=== PATIENT | male | born 1965 | race Two or more races ===

== ENCOUNTER 2025-08-09 13:59 | Inpatient (IN) ==
--- NOTE | 2025-08-09 14:22 | Emergency Department Note ---
Impression & Plan CVA (cerebral vascular accident), Acute hyperkalemia, Hyperglycemia ED Provider Note NAME: KEV [id number] CARMINA AGE: 60 SEX: M : 1965 ARRIVES VIA: Walk-In INFORMANT: Patient ED PROVIDER(S): Donnie Brown DO CHIEF COMPLAINT: Concern for DKA HPI: Patient is a 60-year-old male with a history of diabetes who was initially sent in earlier today for chest pain. He was seen/evaluated and discharged following feeling better and a complete workup with a GI cocktail. He was discharged back and per the [place] [facility] they note he was vomiting once he got back and became very lethargic and consequently they sent him back in concern for DKA. They are also concerned that he may have ingested something as he has become more tired and were requesting a urine drug screen. He does admit to feeling dizzy which he notes has been there for the past 2 days. He denies any focal weakness or numbness in the arms or legs. ADDITIONAL HISTORY OBTAINED: Per HPI Chronic Medical/Social Conditions Affecting Care: Per HPI PAST MEDICAL HISTORY:See Below PAST SURGICAL HISTORY:See Below FAMILY HISTORY:See Below SOCIAL HISTORY:See Below HOME MEDICATIONS:See Below ALLERGIES:See Below VITALS:See Below PHYSICAL EXAMINATION: GENERAL: Sitting up in bed, alert, well appearing, well nourished, no distress, non-toxic EYE EXAM: normal conjunctiva. PERRL and EOM's intact. OROPHARYNX: no exudate, no erythema, lips, buccal mucosa, and tongue normal and mucous membranes are moist NECK: supple, no nuchal rigidity, no adenopathy, non-tender LUNGS: Clear to auscultation. Normal chest wall mechanics HEART: no murmurs, S1 normal and S2 normal ABDOMEN: abdomen soft, non-tender, normo-active bowel sounds, no masses, no rebound or guarding. BACK: Back is symmetrical on inspection and there is no deformity, no midline tenderness, no CVA tenderness. SKIN: no rashes and no bruising UPPER EXTREMITIES: upper extremities are grossly normal. LOWER EXTREMITIES: No pitting edema. NEURO EXAM: Normal sensorium, cranial nerves II-XII intact, normal speech, no weakness of arms, no weakness of legs. No drift. Finger to nose intact. Gross sensation intact. MEDICAL DECISION MAKING: Patient is a 60-year-old male who presents ER referred back in after being seen earlier today. IV was established and blood work is obtained. Labs show no significant leukocytosis and a mild anemia 12.7. BMP with a slightly elevated potassium at 5.4 which is new from previous. Glucose at 285. He is not in DKA. LFTs bilirubin and troponin was negative. Lipase normal. Urine with a small amount of ketones. Urine tox was ordered but negative. He did admit to being dizzy this time and notes that it has been present for the past 2 days. He omitted this on the last evaluation. CT of the head was obtained this time as well as CT abdomen pelvis. CT abdomen pelvis was negative. CT of the head suggested a subacute infarct which likely coincides with the dizziness that has been present for the past 2 to 3 days. Case was discussed with the hospitalist patient was admitted for further evaluation management treatment. He was not within the window of TNK as the dizziness has been present for the past 2 days. He had no focal deficit on exam. He denies any focal weakness or numbness in the arms or legs. Consults/Care Managements Discussions: Per [facility] Triage Nursing notes reviewed. Limited review of prior medical records performed Vital Signs: reviewed and remarkable for HTN Differential diagnosis: Differential diagnosis includes etiologies such as benign positional vertigo, dehydration, hypovolemia, anemia, tumor, infection, hypoglycemia, electrolyte abnormalities, cardiac sources, intracerebral event, toxicologic, neurological, as well as others were entertained. ER treatment provided: See below Diagnostics interpreted by me include EKG and cardiac monitoring as listed below: -Cardiac Monitoring: An order was placed for continuous cardiac monitoring. The monitor shows a rate of 70 with sinus rhythm. -ECG: Sinus rhythm rate of 67 Normal axis No PVCs QTc 464 -Laboratory studies:Interpreted by me as stated above in MDM and shown below. Imaging studies: Xrays: As interpreted by me:none CTs show: CT of the head per my pulmonary no obvious large bleed CT head and abdomen pelvis as described above Procedures:none Critical Care: None Past Med/Surg History Problem List (Updated 08/09/25 @ 17:58 by Donnie Brown DO) Hyperglycemia (Acute) Acute hyperkalemia (Acute) Blood glucose elevated (Acute) Vomiting (Acute) Urinary retention Hyperglycemia DM type 2 (diabetes mellitus, type 2) CVA (cerebral vascular accident) (Acute) Chest pain (Acute) Encounter for pre-operative examination Encounter for pre-operative examination Headache (Acute) Diabetes (Chronic) Migraines (Chronic) Medical History Arthritis Asthma Hyperlipemia HTN (hypertension) Diabetes IDDM Surgical History History of left cataract extraction (~02/04/22) Family History Other Family history unobtainable Social History Smoking Status: Never smoker Preferred Language: Kazakh Communication Ability: unknown Communication Ability Comment: [facility] inmate [employer] Manager Required: No Beliefs That Will Affect Care: None Current Living Situation: Other Current Living Situation Comment: [facility] Feels Safe at Home: Yes Assistive Devices: None Allergies Allergies Allergy/AdvReac Type Severity Reaction Status Date / Time Penicillins Allergy Severe ON SCI Verified 08/09/25 16:21 [facility] MED LIST Home Meds Home Medications Medication Instructions Recorded Confirmed aspirin 81 mg capsule 81 mg PO QAM 08/26/21 08/09/25 metformin 1,000 mg tablet 1,000 mg PO BID 08/26/21 08/09/25 rosuvastatin 40 mg tablet 40 mg PO HS 08/26/21 08/09/25 albuterol sulfate 90 mcg/actuation 2 inh inhalation QID PRN Shortness 02/01/22 08/09/25 aerosol inhaler Of Breath ciclesonide 160 mcg/actuation 1 puff inhalation BID 02/01/22 08/09/25 aerosol inhaler (Alvesco) diclofenac sodium 100 mg 100 mg PO BID 08/09/25 08/09/25 tablet,extended release 24 hr insulin NPH isoph U-100 human 100 12 unit subcut QAM 08/09/25 08/09/25 unit/mL (3 mL) subcutaneous pen insulin NPH isoph U-100 human 100 20 unit subcut DAILY@1630 08/09/25 08/09/25 unit/mL (3 mL) subcutaneous pen insulin regular human 100 unit/mL 1 sliding scale dose subcut 08/09/25 08/09/25 injection solution (Novolin R USEASDIRECTD Regular U-100 Insulin) ketorolac 30 mg/mL injection 30 mg IM DAILY 08/09/25 08/09/25 solution lidocaine 5 % topical ointment 1 applic topical TID 08/09/25 08/09/25 lisinopril 20 mg tablet 20 mg PO DAILY 08/09/25 08/09/25 omega-3 acid ethyl esters 1 gram 2 cap PO BID 08/09/25 08/09/25 capsule Results & Data (ED) Vital Signs Vital Signs - 24 hr 08/09/25 14:06 08/09/25 15:35 Temperature 36.6 C Temperature Source Temporal Artery Scan Pulse Rate 61 66 Respiratory Rate 18 Respiratory Effort / Characteristics Non-Labored Spontaneous Respiratory Depth Normal Respiratory Pattern Regular Blood Pressure 155/77 H Blood Pressure Mean 103 Pulse Oximetry 96 Oxygen Delivery Method Room Air Sepsis Recent Fever Within 48 Hours No Sepsis New/Unexplained Change in Mental Status N/A Sepsis Action Taken by Nursing No Action Required Laboratory Data 08/09/25 14:49 08/09/25 14:49 Lab Results 08/09/25 Range/Units 14:49 WBC 8.64 (4.8-10.8) K/ul RBC 4.40 L (4.70-6.10) M/uL Hgb 12.7 L (14.0-18.0) g/dl Hct 38.5 L (42.0-52.0) % MCV 87.5 (80.0-100.0) fL MCH 28.9 (25.0-34.0) pg MCHC 33.0 (32.0-36.0) g/dL RDW Std Deviation 43.6 (36.4-46.3) fL RDW Coeff of Hong 13.6 (11.5-14.5) % Plt Count 199 (130-400) K/uL MPV 9.9 (9.4-12.4) fL Immature Gran % (Auto) 0.3 % Neut % (Auto) 83.1 % Lymph % (Auto) 11.3 % Merrick % (Auto) 5.2 % Eos % (Auto) 0.0 % Baso % (Auto) 0.1 % Neut # (Auto) 7.17 H (1.40-6.50) K/uL Lymph # (Auto) 0.98 L (1.20-3.40) K/uL Merrick # (Auto) 0.45 (0.11-0.59) K/uL Eos # (Auto) 0.00 (0.00-0.50) K/uL Baso # (Auto) 0.01 (0.00-0.20) K/uL Immature Gran # (Auto) 0.03 (0.01-0.20) K/uL Sodium 137 (136-145) mmol/L Potassium 5.4 H (3.5-5.1) mmol/L Chloride 106 (98-107) mmol/L Carbon Dioxide 26 (21-32) mmol/L Anion Gap 5 (3-11) BUN 31 H (6-23) mg/dl Creatinine 0.90 (0.6-1.4) mg/dl Est Cr Clr Drug Dosing 82.4 ml/min eGFR 96.57 BUN/Creatinine Ratio 34.4 H (10-20) Glucose 285 H (70-99(Fasting)) mg/dl Calcium 8.8 (8.6-10.3) mg/dl Total Bilirubin 0.5 (0.2-1.0) mg/dl AST 23 (13-39) U/L ALT 26 (7-52) U/L Alkaline Phosphatase 75 (34-104) U/L Troponin I High Sens 4.3 (0-20) pg/ml Total Protein 6.8 (6.0-8.3) gm/dl Albumin 4.0 (3.4-5.0) gm/dl Globulin 2.8 (2.5-4.0) gm/dl Albumin/Globulin Ratio 1.4 (0.9-2) Lipase 6 L (11-82) U/L Administered Medications Discontinued Medications Sodium Chloride (Nss) 1,000 mls @ 999 mls/hr IV .Q1H1M ONE Stop: 08/09/25 15:15 Last Infusion: 08/09/25 16:49 Dose: Infused Documented By: Admin: 08/09/25 14:53 Dose: 999 mls/hr Documented By: CEF Ioversol (Optiray 320 100ml) 94 ml IV ONCE ONE Stop: 08/09/25 15:07 Last Admin: 08/09/25 15:07 Dose: 94 ml Documented By: KSF Ondansetron HCl (Ondansetron Inj 2 Mg/Ml 2 Ml Vial) 4 mg IV NOW STA Stop: 08/09/25 14:16 Last Admin: 08/09/25 14:50 Dose: 4 mg Documented By: CEF Imaging Data Radiologist's Impression: Abdomen/Pelvis CT 08/09/25 14:15 CT SCAN OF THE ABDOMEN AND PELVIS WITH IV CONTRAST CLINICAL HISTORY: Nausea and vomiting. COMPARISON STUDY: None. TECHNIQUE: Following the IV administration of 94 cc of Optiray 320, CT scan of the abdomen and pelvis is performed from the lung bases to the proximal femora. Images are reviewed in the axial, sagittal, and coronal planes. IV contrast was administered without complication. A dose lowering technique was utilized adhering to the principles of ALARA. CT DOSE: 1912.96 mGy.cm FINDINGS: No pneumatosis, free air or portal venous gas is present. There is a 2 cm segment 6 hepatic lesion which demonstrates incomplete nodular peripheral enhancement. This favors a hemangioma. An additional 1 cm subcapsular enhancing focus within segment 6 of the liver on image 85 is indeterminate but likely benign. The adrenal glands, kidneys, spleen and pancreas are unremarkable. Subcentimeter hypodense right renal lesion favors a cyst. There is no hydronephrosis. There is no evidence for a bowel obstruction. Colonic diverticulosis. No evidence for acute diverticulitis. There is no lymphadenopathy. The bladder is mildly distended. IMPRESSION: 1. No acute process within the abdomen or pelvis. 2. No bowel obstruction. No bowel wall thickening. 3. Colonic diverticulosis. No evidence for acute diverticulitis. ACT 112: Negative or not required by law. Electronically signed by: Golden Rutherford M.D. 08/09/2025 3:[address] 08/09/25 14:15 CT SCAN OF THE BRAIN WITHOUT IV CONTRAST CLINICAL HISTORY: Dizziness COMPARISON STUDY: CT of the brain dated 09/03/2016. TECHNIQUE: Unenhanced CT scan of the brain is performed from the vertex to the skull base. Images are reviewed in the axial, sagittal, and coronal planes. A dose lowering technique was utilized adhering to the principles of ALARA. FINDINGS: Brain parenchyma: There is a large region showing loss of cunningham-white matter differentiation within the right temporoparietal cortex. The appearance favors a large subacute infarct. There is no hemorrhage or midline shift. Mineralization is noted in the basal ganglia. No extra-axial fluid collection is seen. Ventricles, sulci, cisterns: Normal in configuration. Cavum septum pellucidum is incidentally noted. Intracranial vasculature: There is atherosclerotic calcification of the cavernous carotid arteries. Calvarium: Unremarkable. Sinuses and mastoids: The visualized paranasal sinuses are clear. The mastoid air cells are well pneumatized. Orbits: The bony orbits are grossly intact. There are bilateral ocular lens implants. IMPRESSION: 1. There is a large region showing loss of [place]-white matter differentiation in the right temporoparietal cortex. The appearance is typical for a large subacute infarct. MRI would be confirmatory. 2. There is no hemorrhage or midline shift. ACT 112: Negative or not required by law. Electronically signed by: Hardy Beal M.D. 08/09/2025 3:18 PM Discharge Plan Visit Data Chief Complaint: Referred by Doctor Stated Complaint: RETURN VISIT DOC REFERRAL HERE 1 HR AGO ED Provider: Donnie Brown Discharge Problem: CVA (cerebral vascular accident), Acute hyperkalemia, Hyperglycemia Patient Disposition: Admitted As Inpatient Condition: Fair Discharge Instructions Interventions: ED Discharge Assessment Last Done: 08/09/25 17:10 Discharge Problem: CVA (cerebral vascular accident) Qualifiers: CVA mechanism: unspecified Qualified Code(s): I63.9 - Cerebral infarction, unspecified
[2025-08-09] MEDS: ONDANSETRON INJ 2 MG/ML 2 ML VIAL IV STA (14:50)
[2025-08-09] MEDS: SODIUM CHLORIDE 0.9% 1,000 ML IV ONE (14:53)
[2025-08-09] MEDS: OPTIRAY 320 100ml IV ONE (15:07)
[2025-08-09 15:12] LABS: Hematocrit (blood only) 38.5 % (42.0-52.0); Hemoglobin 12.7 g/dl (14.0-18.0); Immature Granulocytes # (auto) 0.03 K/uL (0.01-0.20); Immature Granulocytes % (auto) 0.3 %; Mean Corpuscular Hemoglobin 28.9 pg (25.0-34.0); Mean Corpuscular Volume 87.5 fL (80.0-100.0); Platelet Count 199 K/uL (130-400); RDW Standard Deviation 43.6 fL (36.4-46.3); Red Blood Count 4.40 M/uL (4.70-6.10); White Blood Count 8.64 K/ul (4.8-10.8)
--- NOTE | 2025-08-09 15:20 | CT Scan Report ---
CT SCAN OF THE BRAIN WITHOUT IV CONTRAST CLINICAL HISTORY: Dizziness COMPARISON STUDY: CT of the brain dated 09/03/2016. TECHNIQUE: Unenhanced CT scan of the brain is performed from the vertex to the skull base. Images are reviewed in the axial, sagittal, and coronal planes. A dose lowering technique was utilized adherin g to the principles of ALARA. FINDINGS: Brain parenchyma: There is a large region showing loss of cunningham-white matter differentiation within th e right temporoparietal cortex. The appearance favors a large subacute infarct. There is no hemorrhag e or midline shift. Mineralization is noted in the basal ganglia. No extra-axial fluid collection is seen. Ventricles, sulci, cisterns: Normal in configuration. Cavum septum pellucidum is incidentally noted. Intracranial vasculature: There is atherosclerotic calcification of the cavernous carotid arteries. Calvarium: Unremarkable. Sinuses and mastoids: The visualized paranasal sinuses are clear. The mastoid air cells are well pneu matized. Orbits: The bony orbits are grossly intact. There are bilateral ocular lens implants. IMPRESSION: 1. There is a large region showing loss of cunningham-white matter differentiation in the right temporopari etal cortex. The appearance is typical for a large subacute infarct. MRI would be confirmatory. 2. There is no hemorrhage or midline shift. ACT 112: Negative or not required by law. Electronically signed by: Hardy Beal M.D. 08/09/2025 3:18 PM
[2025-08-09 15:30] LABS: Alanine Aminotransferase 26.0 U/L (7-52); Albumin Globulin Ratio 1.4 (0.9-2); Albumin Level 4.0 gm/dl (3.4-5.0); Alkaline Phosphatase 75.0 U/L (34-104); Anion Gap 5.0 (3-11); Bilirubin,Total 0.5 mg/dl (0.2-1.0); Blood Urea Nitrogen 31.0 mg/dl (6-23); Calcium 8.8 mg/dl (8.6-10.3); Carbon Dioxide 26.0 mmol/L (21-32); Chloride 106.0 mmol/L (98-107); Globulin 2.8 gm/dl (2.5-4.0); Glucose 285.0 mg/dl (70-99(Fasting)); Lipase 6.0 U/L (11-82); Potassium 5.4 mmol/L (3.5-5.1); Sodium 137.0 mmol/L (136-145); Total Protein 6.8 gm/dl (6.0-8.3)
--- NOTE | 2025-08-09 15:33 | CT Scan Report ---
CT SCAN OF THE ABDOMEN AND PELVIS WITH IV CONTRAST CLINICAL HISTORY: Nausea and vomiting. COMPARISON STUDY: None. TECHNIQUE: Following the IV administration of 94 cc of Optiray 320, CT scan of the abdomen and pelvi s is performed from the lung bases to the proximal femora. Images are reviewed in the axial, sagittal , and coronal planes. IV contrast was administered without complication. A dose lowering technique wa s utilized adhering to the principles of ALARA. CT DOSE: 1912.96 mGy.cm FINDINGS: No pneumatosis, free air or portal venous gas is present. There is a 2 cm segment 6 hepatic lesion which demonstrates incomplete nodular peripheral enhancement. This favors a hemangioma. An ad ditional 1 cm subcapsular enhancing focus within segment 6 of the liver on image 85 is indeterminate but likely benign. The adrenal glands, kidneys, spleen and pancreas are unremarkable. Subcentimeter h ypodense right renal lesion favors a cyst. There is no hydronephrosis. There is no evidence for a bow el obstruction. Colonic diverticulosis. No evidence for acute diverticulitis. There is no lymphadenop athy. The bladder is mildly distended. IMPRESSION: 1. No acute process within the abdomen or pelvis. 2. No bowel obstruction. No bowel wall thickening. 3. Colonic diverticulosis. No evidence for acute diverticulitis. ACT 112: Negative or not required by law. Electronically signed by: Golden Rutherford M.D. 08/09/2025 3:32 PM
--- NOTE | 2025-08-09 15:55 | History & Physical Report ---
<Statement entered by Srinivas Oconnor DO - 08/09/25 18:21> I have seen and examined the patient and have discussed the case with the advance practice provider. I have reviewed the advanced practitioner's documentation, and I agree with, and take responsibility for that plan of care. More detailed questioning, patient admitted to being dizzy for a few days. Suspect patient had stroke at that time based on the fact that it can be seen on CAT scan today. Suspect patient's other symptoms experienced over the last few days related to the stroke. Continue with stroke workup and treatment as outlined below I spent a total of 16 minutes coordinating, documenting, and providing care for this patient excluding time spent by another provider/QHP. Date of Service August 09, 2025 Assessment & Plan (1) CVA (cerebral vascular accident): (2) Urinary retention: (3) Hyperglycemia: (4) DM type 2 (diabetes mellitus, type 2): Plan Patient is a 60-year-old male inmate from [facility] with past medical history significant for HTN, insulin-dependent DM type II, asthma and HLD who presented to the ED for further evaluation of dizziness, ataxia, lethargy and confusion and was found to have a large subacute R temporoparietal cortex infarct on head CT. Large subacute R temporoparietal cortex infarct seen on head CT Patient was previously seen and evaluated in our ED earlier today with complaints of chest pain and vomiting. -Cardiac evaluation at that time was unremarkable including EKG and high- sensitivity troponin level. -He was given a "GI cocktail" per ED provider with improvement in his symptoms. He was discharged back to [facility] in stable condition. Came back in this afternoon for further evaluation of dizziness, ataxia, lethargy and confusion. Found to have large R temporoparietal cortex infarct on head CT. On exam, no overt focal deficits appreciated. A&O to person and situation but not time. However answering direct questioning appropriately. No reported extremity weakness or paraesthesias. Full stroke workup pending including brain MRI, head/neck CTA, TTE, neurology consult and lipid panel/ Hgb A1c in AM. Continue DAPT. Acute urinary retention Noted by ED. Patient reported that he couldn't pee to nursing staff. Patient was complaining of abdominal pain. -CTAP performed and without any significant acute findings. -Likely 2/2 acute urinary retention. 900cc urine output with straight cath. Was not bladder scanned. Etiology not clear. Possibly related to newly found CVA. Bladder scan Q8H for now. If retaining again, could consider placement of Roach cath. UA ordered and pending. Hyperglycemia Insulin-dependent DM type II Not meeting DKA criteria on admission, initial BSG 275. Hold home regimen including metformin. SSI protocol ordered. Monitor BSG check ACHS, CC diet once passed dysphagia screen. Hyperkalemia Likely related to related vomiting, volume loss. Follow repeat BMP around 8PM. S/p 1L NSS in the ED. HTN Hold lisinopril for now to allow for permissive HTN ISO above. HLD Continue statin, ASA. Asthma Continue home inhaler. Anemia H/H appears stable when compared to prior. Check routine anemia panel in AM including vit B12, folate levels. Follow H/H trend. DVT Prophylaxis: SCDs/TEDs for now Code Status: FULL CODE PCP: RENE Kaba Disposition: Admit to med/telemetry Patient seen in collaboration with Dr. Oconnor. Please see addendum. I spent a total of 65 minutes coordinating, documenting, and providing care for this patient excluding time spent in the performance of separately billed services or time spent by another provider/QHP. This included personally reviewing all current laboratories and imaging studies, medical reconciliation, outpatient chart review and discussion with specialists. This chart was completed in part utilizing Speech Voice Recognition Software. Grammatical errors, random word insertions, pronoun errors, and incomplete sentences are an occasional consequence of this system due to software limitations, ambient noise, and hardware issues. Any formal questions or concerns about the content, text, or information contained within the body of this dictation should be directly addressed to the provider for clarification. History of Present Illness Chief Complaint: Dizziness Lethargy and confusion per correctional facility staff Primary Care Provider: [facility] Patient is a 60-year-old male inmate from [facility] with past medical history significant for HTN, insulin-dependent DM type II, asthma and HLD who presented to the ED for further evaluation of dizziness, ataxia, lethargy and confusion. Patient was previously seen and evaluated in our ED earlier today with complaints of chest pain and vomiting. Cardiac evaluation at that time was unremarkable including EKG and high-sensitivity troponin level. Chest x-ray at that time did reveal findings of mild pulmonary vascular congestion and question of hazy opacification of the lung bases however there was remarks of shallow inspiration in the findings which could obscure findings. He was given a "GI cocktail" per ED provider with improvement in his symptoms. He was discharged back to [facility] in stable condition. Patient was brought back to the ED this afternoon with complaints of dizziness, lethargy and confusion. Dizziness reportedly ongoing x 3 days. This was not mentioned during his earlier visit in the ED. Upon arrival back to [facility] earlier today, medical staff noted that he was ataxic, appeared lethargic and confused. Patient alert and oriented to direct questioning in the ED. Able to recall recent symptomatology and situation. Cannot correctly identify location. Believes he is still at [facility]. Only complaint is lower abdominal pain. He did mention to nursing staff that he felt like he couldn't urinate. Straight cath was done in the ED with 900cc of urine output. Allergies Allergy/AdvReac Type Severity Reaction Status Date / Time Penicillins Allergy Severe ON SCI Verified 08/09/25 16:21 [facility] MED LIST Home Medications Medication Instructions Recorded Confirmed Type aspirin 81 mg capsule 81 mg PO QAM 08/26/21 08/09/25 History metformin 1,000 mg tablet 1,000 mg PO BID 08/26/21 08/09/25 History rosuvastatin 40 mg tablet 40 mg PO HS 08/26/21 08/09/25 History albuterol sulfate 90 mcg/actuation 2 inh inhalation QID PRN Shortness 02/01/22 08/09/25 History aerosol inhaler Of Breath ciclesonide 160 mcg/actuation 1 puff inhalation BID 02/01/22 08/09/25 History aerosol inhaler (Alvesco) diclofenac sodium 100 mg 100 mg PO BID 08/09/25 08/09/25 History tablet,extended release 24 hr insulin NPH isoph U-100 human 100 12 unit subcut QAM 08/09/25 08/09/25 History unit/mL (3 mL) subcutaneous pen insulin NPH isoph U-100 human 100 20 unit subcut DAILY@1630 08/09/25 08/09/25 History unit/mL (3 mL) subcutaneous pen insulin regular human 100 unit/mL 1 sliding scale dose subcut 08/09/25 08/09/25 History injection solution (Novolin R USEASDIRECTD Regular U-100 Insulin) ketorolac 30 mg/mL injection 30 mg IM DAILY 08/09/25 08/09/25 History solution lidocaine 5 % topical ointment 1 applic topical TID 08/09/25 08/09/25 History lisinopril 20 mg tablet 20 mg PO DAILY 08/09/25 08/09/25 History omega-3 acid ethyl esters 1 gram 2 cap PO BID 08/09/25 08/09/25 History capsule Past Med/Surg History Problem List Urinary retention Hyperglycemia DM type 2 (diabetes mellitus, type 2) CVA (cerebral vascular accident) Chest pain (Acute) Encounter for pre-operative examination Encounter for pre-operative examination Headache (Acute) Diabetes (Chronic) Migraines (Chronic) Medical History Arthritis Asthma Hyperlipemia HTN (hypertension) Diabetes IDDM Surgical History History of left cataract extraction (~02/04/22) Family History Other Family history unobtainable Social History Smoking Status: Never smoker Preferred Language: Vietnamese Communication Ability: unknown Communication Ability Comment: RENE [facility] inmate Php Developer Required: No Beliefs That Will Affect Care: None Current Living Situation: Other Current Living Situation Comment: RENE Kaba Feels Safe at Home: Yes Assistive Devices: None Review of Systems Review of Systems: At least ten systems reviewed and negative, except as noted in the HPI. Physical Exam Physical Exam: General: M, laying down in bed, A&Ox2, + chills, correctional officers at bedside. HEENT: Normocephalic, atraumatic. External ear and nose normal, somewhat dry mucous membranes. Respiratory: Normal respiratory effort, CTAB. On RA. No accessory muscle use. Cardiovascular: RRR, normal peripheral pulses, no BLE edema. Abdomen/GI: Normal bowel sounds, soft, nontender to palpation in all quadrants. Extremities/Musculoskeletal: No cyanosis or clubbing, extremities motor strength intact, moves all extremities. Neurologic: No overt focal deficits, CN's II-XI not formally tested but appear grossly intact bilaterally. Results & Data Results & Data Vital Signs (Past 12 Hours) Vital Signs Temp Pulse Resp BP Pulse Ox O2 Del Method 08/09/25 15:35 66 08/09/25 14:06 36.6 C 61 18 155/77 H 96 Room Air Laboratory Results Short CBC 08/09/25 Range/Units 14:49 WBC 8.64 (4.8-10.8) K/ul Hgb 12.7 L (14.0-18.0) g/dl Hct 38.5 L (42.0-52.0) % Plt Count 199 (130-400) K/uL BMP 08/09/25 14:49 Sodium 137 Potassium 5.4 H Chloride 106 Carbon Dioxide 26 BUN 31 H Creatinine 0.90 Glucose 285 H Calcium 8.8 Liver Function 08/09/25 Range/Units 14:49 Total Bilirubin 0.5 (0.2-1.0) mg/dl AST 23 (13-39) U/L ALT 26 (7-52) U/L Alkaline Phosphatase 75 (34-104) U/L Albumin 4.0 (3.4-5.0) gm/dl Diagnostic Findings Abdomen/Pelvis CT 08/09/25 14:15 CT SCAN OF THE ABDOMEN AND PELVIS WITH IV CONTRAST CLINICAL HISTORY: Nausea and vomiting. COMPARISON STUDY: None. TECHNIQUE: Following the IV administration of 94 cc of Optiray 320, CT scan of the abdomen and pelvis is performed from the lung bases to the proximal femora. Images are reviewed in the axial, sagittal, and coronal planes. IV contrast was administered without complication. A dose lowering technique was utilized adhering to the principles of ALARA. CT DOSE: 1912.96 mGy.cm FINDINGS: No pneumatosis, free air or portal venous gas is present. There is a 2 cm segment 6 hepatic lesion which demonstrates incomplete nodular peripheral enhancement. This favors a hemangioma. An additional 1 cm subcapsular enhancing focus within segment 6 of the liver on image 85 is indeterminate but likely benign. The adrenal glands, kidneys, spleen and pancreas are unremarkable. Subcentimeter hypodense right renal lesion favors a cyst. There is no hydronephrosis. There is no evidence for a bowel obstruction. Colonic diverticulosis. No evidence for acute diverticulitis. There is no lymphadenopathy. The bladder is mildly distended. IMPRESSION: 1. No acute process within the abdomen or pelvis. 2. No bowel obstruction. No bowel wall thickening. 3. Colonic diverticulosis. No evidence for acute diverticulitis. ACT 112: Negative or not required by law. Electronically signed by: Golden Rutherford M.D. 08/09/2025 3:[address] 08/09/25 14:15 CT SCAN OF THE BRAIN WITHOUT IV CONTRAST CLINICAL HISTORY: Dizziness COMPARISON STUDY: CT of the brain dated 09/03/2016. TECHNIQUE: Unenhanced CT scan of the brain is performed from the vertex to the skull base. Images are reviewed in the axial, sagittal, and coronal planes. A dose lowering technique was utilized adhering to the principles of ALARA. FINDINGS: Brain parenchyma: There is a large region showing loss of cunningham-white matter differentiation within the right temporoparietal cortex. The appearance favors a large subacute infarct. There is no hemorrhage or midline shift. Mineralization is noted in the basal ganglia. No extra-axial fluid collection is seen. Ventricles, sulci, cisterns: Normal in configuration. Cavum septum pellucidum is incidentally noted. Intracranial vasculature: There is atherosclerotic calcification of the cavernous carotid arteries. Calvarium: Unremarkable. Sinuses and mastoids: The visualized paranasal sinuses are clear. The mastoid air cells are well pneumatized. Orbits: The bony orbits are grossly intact. There are bilateral ocular lens implants. IMPRESSION: 1. There is a large region showing loss of cunningham-white matter differentiation in the right temporoparietal cortex. The appearance is typical for a large subacute infarct. MRI would be confirmatory. 2. There is no hemorrhage or midline shift. ACT 112: Negative or not required by law. Electronically signed by: Hardy Beal M.D. 08/09/2025 3:18 PM Medications Administered Discontinued Medications Sodium Chloride (Nss) 1,000 mls @ 999 mls/hr IV .Q1H1M ONE Stop: 08/09/25 15:15 Last Admin: 08/09/25 14:53 Dose: 999 mls/hr Documented By: CEF Ioversol (Optiray 320 100ml) 94 ml IV ONCE ONE Stop: 08/09/25 15:07 Last Admin: 08/09/25 15:07 Dose: 94 ml Documented By: MANUEL Ondansetron HCl (Ondansetron Inj 2 Mg/Ml 2 Ml Vial) 4 mg IV NOW STA Stop: 08/09/25 14:16 Last Admin: 08/09/25 14:50 Dose: 4 mg Documented By: CEF
[2025-08-09 16:00] LABS: Creatinine Clr Calc Pharmacy 82.4 ml/min
[2025-08-09] MEDS ORDERED: DEXTROSE 50% 50 ML SYRINGE IV PRN (16:07)
[2025-08-09] MEDS ORDERED: CARBOHYDRATES FOR HYPOGLYCEMIA PO PRN (16:07)
[2025-08-09] MEDS ORDERED: GLUCOSE 40% GEL 15 GM TUBE PO PRN (16:07)
[2025-08-09] MEDS ORDERED: GLUCOSE 10 TAB/TUBE PO PRN (16:07)
[2025-08-09] MEDS ORDERED: GLUCAGON FOR INJ 1 MG VIAL SQ PRN (16:07)
[2025-08-09] MEDS ORDERED: PHARMACY GLYCEMIC MGMT CONSULT PRN (16:07)
[2025-08-09 17:09] LABS: Appearance Urine Clear (Clear); Glucose Urine UA 2+ (Negative)
[2025-08-09 17:32] LABS: Epithelial Cell Urine 0-2 /hpf (0-2)
[2025-08-09] MEDS ORDERED: PHARMACIST DISCHARGE MED REC CONSULT PRN (17:34)
[2025-08-09] MEDS ORDERED: POLYETHYLENE (MIRALAX) 17 GM PACK PO PRN (17:34)
[2025-08-09 17:45] LABS: Amphetamines+Metham, Urine Neg (Neg); MDMA (Ecstacy), Urine Neg (Neg); Marijuana, Urine Neg (Neg)
[2025-08-09] MEDS: OPTIRAY 320 125ml IV ONE (18:23)
--- NOTE | 2025-08-09 18:34 | CT Scan Report ---
CT angiogram of the neck CT angiogram of the brain with contrast Provided History: Neuro deficit Comparison: None Technique: HEAD CT: Using multidetector thin collimation helical acquisition technique, axial, coronal and sagittal CT images from the skull base to the vertex were obtained without intravenous contrast. HEAD and NECK CTA: During rapid bolus intravenous injection of nonionic contrast material, axial images were obtained using thin collimation multidetector helical technique from the base of the neck through the of vertex of the head. This CT angiogram data was reconstructed at thin intervals with mild overlap. 3D reconstructions were obtained. The axial source images, multiplanar reformations, 3D reconstructions in both maximum intensity projection display and volume rendered models were reviewed. Dose reduction techniques were achieved by using automatic exposure control and/or adjustment of mA and/or kV according to patient size and/or use of iterative reconstruction technique. Findings: Head CTA demonstrates no aneurysm or stenosis of the major intracranial arteries. Neck CTA demonstrates no stenosis of the major cervical arteries. The origins of the great vessels from the aortic arch are patent. No mass is noted within the visualized portions of the cervical soft tissues or lung apices. Impression: 1. Head CTA demonstrates no aneurysm or stenosis of the major intracranial arteries, 2. Neck CTA demonstrates no stenosis of the major cervical arteries. Electronically signed by Kevyn Burrows 08-09-2025 6:33 PM
[2025-08-09] MEDS: INSULIN ASPART PER UNIT CHARGE SC SCH (18:35)
[2025-08-09 20:10] LABS: Anion Gap 7.0 (3-11); Blood Urea Nitrogen 23.0 mg/dl (6-23); Calcium 9.1 mg/dl (8.6-10.3); Carbon Dioxide 25.0 mmol/L (21-32); Chloride 108.0 mmol/L (98-107); Creatinine Clr Calc Pharmacy 78.9 ml/min; Glucose 198.0 mg/dl (70-99(Fasting)); Potassium 4.5 mmol/L (3.5-5.1); Sodium 140.0 mmol/L (136-145)
[2025-08-09] MEDS: ONDANSETRON INJ 2 MG/ML 2 ML VIAL IV PRN (21:00)
[2025-08-09] MEDS: ROSUVASTATIN CALCIUM 20 MG TAB PO SCH (21:28)
[2025-08-10] MEDS: ACETAMINOPHEN 325 MG TAB PO PRN (03:01)
[2025-08-10] MEDS: INSULIN ASPART PER UNIT CHARGE SC SCH ×2 (06:27→08:48)
[2025-08-10] MEDS ORDERED: Nursing to Pharmacy Communication SCH (06:30)
[2025-08-10] MEDS: ASPIRIN 81 MG ECTAB PO SCH (07:48)
[2025-08-10 07:57] LABS: Hematocrit (blood only) 36.5 % (42.0-52.0); Hemoglobin 12.5 g/dl (14.0-18.0); Mean Corpuscular Hemoglobin 29.8 pg (25.0-34.0); Mean Corpuscular Volume 87.1 fL (80.0-100.0); Platelet Count 203 K/uL (130-400); RDW Standard Deviation 43.5 fL (36.4-46.3); Red Blood Count 4.19 M/uL (4.70-6.10); White Blood Count 8.97 K/ul (4.8-10.8)
[2025-08-10 08:13] LABS: Anion Gap 8.0 (3-11); Blood Urea Nitrogen 21.0 mg/dl (6-23); Calcium 8.6 mg/dl (8.6-10.3); Carbon Dioxide 24.0 mmol/L (21-32); Chloride 108.0 mmol/L (98-107); Cholesterol 179.0 mg/dl (0-200); Creatinine Clr Calc Pharmacy 81.2 ml/min; Glucose 187.0 mg/dl (70-99(Fasting)); Iron 73.0 mcg/dl (35-175); Magnesium 2.4 mg/dl (1.7-2.4); Potassium 4.1 mmol/L (3.5-5.1); Sodium 140.0 mmol/L (136-145); Total Iron Binding Cap Calc 311.0 mcg/dl (250-450); Transferrin 222.0 mg/dl (200-360); Transferrin (FE) Percent Satur 23.0 % (20-50); Triglycerides 262.0 mg/dl (0-150)
[2025-08-10 08:33] LABS: Ferritin 81.8 ng/ml (8-388)
[2025-08-10 08:37] LABS: Folate (Folic Acid),Ser orPlas 22.26 ng/ml (>5.38)
[2025-08-10 08:38] LABS: Vitamin B12 195.0 pg/ml (180-914)
[2025-08-10] MEDS: INSULIN HUMAN NPH SC SCH ×2 (08:48→18:06)
[2025-08-10] MEDS: FLUTICASONE FUROATE 200MCG 14 PUFFS/INHALER INH SCH (08:48)
[2025-08-10] MEDS: CLOPIDOGREL BISULFATE 75 MG TAB PO SCH (08:48)
[2025-08-10 08:51] LABS: HDL Cholesterol 34.0 mg/dl
--- NOTE | 2025-08-10 08:52 | Pharmacy Report ---
Pharmacy Glycemic Short Note 2 - Date of Service August 10, 2025 - Glycemic Short BSG Results (Last 24 hours): 08/09/25 08/09/25 08/09/25 14:49 19:34 20:17 Glucose 285 H 198 H POC Glucose 155 H 08/10/25 08/10/25 07:34 08:21 Glucose 187 H POC Glucose 199 H OUTPATIENT ANTIDIABETIC REGIMEN: * NPH 12 units with breakfast, 20 units with dinner * Regular insulin SSI * Metformin 1000mg PO BID * A1c pending ASSESSMENT: * 60 YO M inmate from [facility], [facility] HTN, DM type II, asthma and HLD, admitted with large subacute R temporoparietal cortex infarct on head CT. * NPO yesterday, started type 2 DM diet yesterday, no basal yesterday. Will begin basal today, slightly reduced dose since patient will receive carb coverage with NovoLog. PLAN FOR INPATIENT GLYCEMIC CONTROL: * Hold outpatient oral diabetes medications * Basal insulin * NPH 12 units SQ with breakfast, 15 units with dinner * Bolus insulin * NovoLog per scale ACHS or Q6hrs while NPO * Goal Range: Low 110 mg/dL - High 140 mg/dL * Correction Factor: 30 mg/dL/unit * Nutritional / Prandial insulin per carb ratio of 1 unit per 9 grams CHO consumed
[2025-08-10 08:59] LABS: Hemoglobin A1C 8.9 % (4.5-5.6)
--- NOTE | 2025-08-10 11:35 | XCELERA ---
[id number]
--- NOTE | 2025-08-10 11:49 | Magnetic Resonance Report ---
MRI OF THE BRAIN WITHOUT IV CONTRAST CLINICAL HISTORY: Stroke. COMPARISON STUDY: CT of the brain dated 08/09/2025 TECHNIQUE: MRI of the brain was performed utilizing various T1 and T2-weighted sequences in the axial , sagittal, and coronal planes. IV contrast was not administered for this examination. FINDINGS: Brain parenchyma: There is a large region of restricted diffusion identified involving the right temp oroparietal cortex consistent with a subacute infarct when correlated with the recent CT scan. There is localized edema with mild effacement of the overlying cortical sulci. There is also restricted dif fusion within the right insular cortex. No focus of restricted diffusion are seen throughout the left hemisphere or the cerebellum. There is no hemorrhage or midline shift. No extra-axial fluid collecti on is seen. The cerebellar tonsils are normal in configuration. Mineralization is seen in the basal g anglia. There is mild to moderate patchy subcortical and periventricular microangiopathic disease. Ventricles, sulci, and cisterns: Normal in configuration. Cavum septum pellucidum is incidentally not ed Pituitary and sella: Unremarkable. Intracranial vasculature: Normal flow voids are maintained at the skull base. Orbits: The bony orbits are grossly intact. Orbital contents are normal in appearance noting bilatera l ocular lens implants. Sinuses and mastoids: Clear. Calvarium: Unremarkable. Cervical cord: Partially visualized cervical spinal cord is normal in morphology and signal intensity . IMPRESSION: 1. Large subacute right MCA territory infarct involving the temporoparietal cortex. 2. No foci of restricted diffusion are seen in the left hemisphere or the cerebellum. 3. There is no hemorrhage or midline shift. ACT 112: Negative or not required by law. Electronically signed by: Hardy Beal M.D. 08/10/2025 11:47 AM
--- NOTE | 2025-08-10 12:24 | Hospitalist Progress Note ---
Date of Service August 10, 2025 Assessment & Plan (1) CVA (cerebral vascular accident): (2) Urinary retention: (3) Hyperglycemia: (4) DM type 2 (diabetes mellitus, type 2): Plan 60-year-old male inmate from [facility] with past medical history significant for HTN, insulin-dependent DM type II, asthma and HLD who presented to the ED for further evaluation of dizziness, ataxia, lethargy and confusion and was found to have a large subacute R temporoparietal cortex infarct on head CT. He is being managed for the following: Large subacute R temporoparietal cortex infarct: seen on head CT Patient was previously seen and evaluated in our ED earlier on admitting day with complaints of chest pain and vomiting. -Cardiac evaluation at that time was unremarkable including EKG and high- sensitivity troponin level. -He was given a "GI cocktail" per ED provider with improvement in his symptoms. He was discharged back to [facility] in stable condition. Came back the same afternoon for further evaluation of dizziness, ataxia, lethargy and confusion. Found to have large R temporoparietal cortex infarct on head CT. CTA Head and Neck w/ no acute findings. MRI Brain : Large subacute right MCA territory infarct involving the tem poroparietal cortex. No foci of restricted diffusion are seen in the left hemisphere or the cerebellum. There is no hemorrhage or midline shift. A1c 8.9, LDL93. Tox screen neg. ECHO w/ ef of 55-60%, no PFO ro ASD. No slurring of speech, motor strength bilaterally symmetrical. decreased LLE senses noted. Pt reports headache/dizziness; some improving. c/w neuro checks, tele monitor, fall precaution PT/OT/Speech eval Neuro eval pending. C/w DAPT, Statin. Neuro f/u on dc. Acute urinary retention Noted by ED. Patient reported that he couldn't pee to nursing staff. Patient was complaining of abdominal pain. -CTAP performed and without any significant acute findings. -Likely 2/2 acute urinary retention. 900cc urine output with straight cath at ED. Was not bladder scanned. Etiology not clear. Possibly related to newly found CVA. UA no s/o uti. Bladder scan Q8H . If retaining again, could consider placement of Roach cath. Uncontrolled Insulin-dependent DM type II Hold home regimen including metformin. SSI protocol ordered. Monitor BSG check ACHS, CC diet once passed dysphagia screen. Will need insulin / medication adjustment at dc. Hyperkalemia: Likely related to related vomiting, volume loss. s/p ivf. now resolved. HTN: c/w home bp meds. HLD: Continue statin, ASA. Asthma: Continue home inhaler. Anemia: H/H appears stable when compared to prior. Iron profile, B12 and folate levels are normal. DVT Prophylaxis: SCDs/TEDs for now Code Status: FULL CODE PCP: RENE Kaba Disposition: med/telemetry, pt/ot. Admission and Anticipated Discharge Date Admission Date: August 09, 2025 Subjective Patient was seen and examined at bedside. Patient was lying in bed, on room air, sleeping. Patient woke up to exam, reports some improvement in his headache/dizziness but his headache and dizziness is still bothering him. He feels weak and appears ill and frail. Physical Exam Physical Exam: General: M, laying down in bed, A&Ox3, correctional officers at bedside. HEENT: Normocephalic, atraumatic. External ear and nose normal, moist mucous membranes. Respiratory: Normal respiratory effort, CTAB. On RA. No accessory muscle use. Cardiovascular: RRR, normal peripheral pulses, no BLE edema. Abdomen/GI: Normal bowel sounds, soft, nontender to palpation in all quadrants. Extremities/Musculoskeletal: No cyanosis or clubbing, extremities motor strength intact, moves all extremities. decreased sensation LLE. Neurologic: CN's II-XI not formally tested but appear grossly intact bilaterally. Results & Data Results & Data Vital Signs (Past 12 Hours) Vital Signs Temp Pulse Pulse Resp BP Pulse Ox O2 Del Method 08/10/25 08:34 37.1 C 69 16 128/70 96 Room Air 08/10/25 07:20 70 08/10/25 03:51 36.7 C 08/10/25 02:49 37.8 C H 76 19 151/80 H 93 Room Air (1) CVA (cerebral vascular accident) CVA mechanism: unspecified Qualified Code(s): I63.9 - Cerebral infarction, unspecified
--- NOTE | 2025-08-10 19:03 | Neurology Consultation ---
Date of Consultation August 10, 2025 Assessment & Plan (1) Acute ischemic cerebrovascular accident (CVA) involving right middle cerebral artery territory: Unclear etiology at this point, recommend to continue aspirin and Plavix given mild atherosclerotic disease for about 21 days. Maximum dose atorvastatin. Check anticardiolipin antibodies Plan Will need a Zio patch upon discharge. Continue telemetry monitoring for A-fib. Reorientation, provide Tylenol for headaches. Follow-up with neurology as an outpatient for further determination of appropriate stroke prevention therapy. Telehealth Consultation Telehealth Information Telehealth Information: I performed this visit using a real-time telehealth connection between my location and the patients originating location ([facility]). After connecting through interactive tele-video, patient was identified by name and date of and/or wristband check.Patient (or authorized healthcare provider relations representative) was informed that this was a telemedicine visit and it was being conducted confidentially over secure lines. My office door was closed and no one else was present in the room with me.Patient (or authorized healthcare provider relations representative) provided consent to proceed with the visit, expressed an understanding of privacy and security of the telemedicine visit, and gave permission to have a hospital provider relations representative in the room in order to assist with the visit and to conduct portions of the visit, as needed. I informed the patient (or authorized healthcare provider relations representative) that I reviewed their record and presented the opportunity for them to ask any questions regarding the visit today. The patient agreed to participate. History of Present Illness Reason for Consultation: Ischemic stroke Requesting Physician: Tara Chang MD Attending Physician: Tara Chang MD History of Present Illness The patient Sanjeev Carvajal is a 60-year-old male patient with PMH of HTN, insulin-dependent DM, HLD, asthma, who presented to the hospital on 1016 for complaints of dizziness confusion and difficulty with gait. She was found to have subacute right temporoparietal cortical infarct within the left MCA territory. She was found to have hyperglycemia, hyperkalemia. The patient is reported to speak Estonian and able to express himself usually however he appeared to be inattentive and can more confused he was off balance. Upon my evaluation the patient did not contribute much to history giving he did report that he has been having a headache, He denies any weakness and reported equal sensation. Did not blink to threat to the left side. Allergies Allergy/AdvReac Type Severity Reaction Status Date / Time Penicillins Allergy Severe ON SCI Verified 08/09/25 16:21 [facility] Home Medications Medication Instructions Recorded Confirmed Type aspirin 81 mg capsule 81 mg PO QAM 08/26/21 08/09/25 History metformin 1,000 mg tablet 1,000 mg PO BID 08/26/21 08/09/25 History rosuvastatin 40 mg tablet 40 mg PO HS 08/26/21 08/09/25 History albuterol sulfate 90 mcg/actuation 2 inh inhalation QID PRN Shortness 02/01/22 08/09/25 History aerosol inhaler Of Breath ciclesonide 160 mcg/actuation 1 puff inhalation BID 02/01/22 08/09/25 History aerosol inhaler (Alvesco) diclofenac sodium 100 mg 100 mg PO BID 08/09/25 08/09/25 History tablet,extended release 24 hr insulin NPH isoph U-100 human 100 12 unit subcut QAM 08/09/25 08/09/25 History unit/mL (3 mL) subcutaneous pen insulin NPH isoph U-100 human 100 20 unit subcut DAILY@1630 08/09/25 08/09/25 History unit/mL (3 mL) subcutaneous pen insulin regular human 100 unit/mL 1 sliding scale dose subcut 08/09/25 08/09/25 History injection solution (Novolin R USEASDIRECTD Regular U-100 Insulin) ketorolac 30 mg/mL injection 30 mg IM DAILY 08/09/25 08/09/25 History solution lidocaine 5 % topical ointment 1 applic topical TID 08/09/25 08/09/25 History lisinopril 20 mg tablet 20 mg PO DAILY 08/09/25 08/09/25 History omega-3 acid ethyl esters 1 gram 2 cap PO BID 08/09/25 08/09/25 History capsule Patient History Medical History Arthritis Asthma Hyperlipemia HTN (hypertension) Diabetes IDDM Surgical History History of left cataract extraction (~02/04/22) Family History Other Family history unobtainable Social History Smoking Status: Former smoker Smoking End Date: 08/09/2000; Hx Alcohol Use: No Hx Substance Use: No Preferred Language: Honduran Communication Ability: Effective Communication Ability Comment: [employer] inmate [employer] Required: No Beliefs That Will Affect Care: None Current Living Situation: Other Current Living Situation Comment: [employer] Other Information That Helps Us Care for You: No Feels Safe at Home: Yes Safety Concerns: Feels Safe At This Time Assistive Devices: Wheelchair Review of Systems unable to obtain given confusion Physical Exam General Constitutional: Appearance normally developed Head and face: normocephalic and atraumatic Eyes: no ptosis, no anisocoria, and no dysconjugate gaze Respiratory: normal effort Cardiovascular: regular rhythm and regular rate Abdomen: non distended Skin: no rashes, lesions, or ulcers noted Psychiatric: normal judgement and insight, normal mood, and normal affect NEUROLOGIC EXAMINATION: Mental Status:alert, oriented to time, place, person, normal recent memory, normal remote memory, normal attention span, normal concentration, normal language and normal fund of knowledge Cranial Nerves: CN 2 - no visual defect on confrontation and pupils round, equal, reactive to light CN 3, 4, 6 - extra-ocular movements intact and no nystagmus CN 5 - facial sensation intact CN 7 - no facial asymmetry CN 8 - intact hearing CN 9, 10 - palate symmetric, normal gag CN 11 - good shoulder shrug CN 12 - tongue midline MOTOR: Strength was at least antigravity throughout, Pronator drift was absent and There were no abnormal movements SENSATION: intact and symmetric to pinprick, light touch, vibration and joint position GAIT: stable, no ataxia and can perform tandem walking COORDINATION: no ataxia with finger to nose testing and heel to bonilla testing REFLEXES: cannot assess over telemedicine NIH Stroke Scale: 1a. Level of Consciousness: alert = 0 1b. LOC Questions: (month, age): both correct = 0 1c. LOC Commands (open and close eyes, make fist and let go using non-paretic hand): obeys both correctly = 0 2. Best Gaze (eyes open and patient follows examiner's finger or face): normal = 0 3. Visual (visual threat or finger counting in each quadrant): no loss = 0 4. Facial Palsy (show teeth, raise eye brows and squeeze eyes shut, or grimace symmetry in a comatose patient): normal = 0 5a. Motor Arm (extend arm (palms down) to 90 degrees and score drift/movement (10 seconds) - Left: no drift = 0 5b. Motor Arm: (extend arm (palms down) to 90 degrees and score drift/movement (10 seconds) - Right: no drift = 0 6a. Motor Leg (elevate leg 30 degrees and score drift/ movement (5 seconds) - Left: no drift = 0 6b. Motor Leg (elevate leg 30 degrees and score drift/ movement (5 seconds) - Right: no drift = 0 7. Limb Ataxia (finger to nose, heel down bonilla): absent = 0 8. Sensory (pin prick to face, arm, trunk and leg, compare side to side): normal = 0 9. Best Language: no aphasia = 0 10. Dysarthria (evaluate speech clarity by patient repeating listed words): normal articulation = 0 11. Extinction and Inattention: no neglect = 0 Total: 0 Results & Data Vital Signs (Past 12 Hours) Vital Signs Temp Pulse Pulse Resp BP Pulse Ox O2 Del Method 08/10/25 15:41 62 08/10/25 12:11 37.2 C 69 16 136/78 95 Room Air 08/10/25 08:34 37.1 C 69 16 128/70 96 Room Air 08/10/25 07:20 70 Laboratory Results Abnormal lab results 08/09/25 08/09/25 08/10/25 Range/Units 19:34 20:17 07:34 RBC 4.19 L (4.70-6.10) M/uL Hgb 12.5 L (14.0-18.0) g/dl Hct 36.5 L (42.0-52.0) % Chloride 108 H 108 H (98-107) mmol/L BUN/Creatinine Ratio 24.5 H 24.1 H (10-20) Glucose 198 H 187 H (70-99(Fasting)) mg/dl POC Glucose 155 H (70-99) mg/dl Hemoglobin A1c 8.9 H (4.5-5.6) % Triglycerides 262 H (0-150) mg/dl VLDL Cholesterol, Calc 52 H (0-30) mg/dl Cholesterol/HDL Ratio 5.3 H (0-5) 08/10/25 08/10/25 08/10/25 Range/Units 08:21 12:29 17:05 RBC (4.70-6.10) M/uL Hgb (14.0-18.0) g/dl Hct (42.0-52.0) % Chloride (98-107) mmol/L BUN/Creatinine Ratio (10-20) Glucose (70-99(Fasting)) mg/dl POC Glucose 199 H 165 H 122 H (70-99) mg/dl Hemoglobin A1c (4.5-5.6) % Triglycerides (0-150) mg/dl VLDL Cholesterol, Calc (0-30) mg/dl Cholesterol/HDL Ratio (0-5) Diagnostic Findings CTA head and neck showed no evidence of large artery stenosis or occlusion it demonstrates the right parietotemporal strokes. MRI of the brain confirms the finding of a large subacute right MCA territorial stroke within the right temporoparietal area, posterior MCA distribution Echocardiogram showed LVEF of 55 to 60%, nondilated. Cardiac chambers, negative for PFO or ASD. EKG was normal sinus CXR:Hszy opscity of the lung bases could represent atelactasis Medications Administered Home Medications Medication Instructions Recorded Confirmed Last Taken aspirin 81 mg capsule 81 mg PO QAM 08/26/21 08/09/25 07/26/25 metformin 1,000 mg tablet 1,000 mg PO BID 08/26/21 08/09/25 Unknown rosuvastatin 40 mg tablet 40 mg PO HS 08/26/21 08/09/25 07/26/25 albuterol sulfate 90 mcg/actuation 2 inh inhalation QID PRN Shortness 02/01/22 08/09/25 07/23/25 aerosol inhaler Of Breath ciclesonide 160 mcg/actuation 1 puff inhalation BID 02/01/22 08/09/25 07/23/25 aerosol inhaler (Alvesco) diclofenac sodium 100 mg 100 mg PO BID 08/09/25 08/09/25 07/26/25 tablet,extended release 24 hr insulin NPH isoph U-100 human 100 12 unit subcut QAM 08/09/25 08/09/25 08/08/25 unit/mL (3 mL) subcutaneous pen insulin NPH isoph U-100 human 100 20 unit subcut DAILY@1630 08/09/25 08/09/25 08/08/25 unit/mL (3 mL) subcutaneous pen insulin regular human 100 unit/mL 1 sliding scale dose subcut 08/09/25 08/09/25 08/08/25 injection solution (Novolin R USEASDIRECTD Regular U-100 Insulin) ketorolac 30 mg/mL injection 30 mg IM DAILY 08/09/25 08/09/25 08/09/25 solution lidocaine 5 % topical ointment 1 applic topical TID 08/09/25 08/09/25 07/26/25 lisinopril 20 mg tablet 20 mg PO DAILY 08/09/25 08/09/25 07/26/25 omega-3 acid ethyl esters 1 gram 2 cap PO BID 08/09/25 08/09/25 07/26/25 capsule Active Medications Generic Name Dose Route Start Last Admin Trade Name Freq PRN Reason Stop Dose Admin Acetaminophen 650 mg 08/09/25 17:34 08/10/25 03:01 Acetaminophen 325 Mg Tab PO 09/08/25 17:33 650 mg Q4H PRN Administration Pain or Fever Aspirin 81 mg 08/10/25 09:00 08/10/25 07:48 Aspirin 81 Mg Ectab PO 09/09/25 08:59 81 mg QAM PRESLEY Administration Clopidogrel Bisulfate 75 mg 08/10/25 09:00 08/10/25 08:48 Clopidogrel Bisulfate 75 Mg Tab PO 09/09/25 08:59 75 mg QAM PRESLEY Administration Fluticasone Furoate 1 puffs 08/10/25 09:00 08/10/25 08:48 Fluticasone Furoate 200mcg 14 Puffs/Inhaler INH 09/09/25 08:59 1 puffs DAILY [facility] Administration Insulin Aspart 0 units 08/10/25 07:30 08/10/25 18:03 Insulin Aspart Per Unit Charge SC 09/09/25 07:29 Not Given [facility] Insulin Human NPH 12 units 08/10/25 07:30 08/10/25 08:48 Insulin Human Nph SC 09/09/25 07:29 12 units DAILY@0730 [facility] Administration Insulin Human NPH 15 units 08/10/25 17:00 08/10/25 18:06 Insulin Human Nph VT 09/09/25 16:59 15 units DAILY@1700 PRESLEY Administration Ondansetron HCl 4 mg 08/09/25 17:34 08/09/25 21:00 Ondansetron Inj 2 Mg/Ml 2 Ml Vial IV 09/08/25 17:33 4 mg Q6H PRN Administration Nausea Rosuvastatin Calcium 40 mg 08/09/25 21:00 08/09/25 21:28 Rosuvastatin Calcium 20 Mg Tab PO 09/08/25 20:59 40 mg HS PRESLEY Administration
[2025-08-10] MEDS ORDERED: INSULIN ASPART PER UNIT CHARGE SC SCH (19:15)
[2025-08-11 07:29] LABS: Hematocrit (blood only) 39.5 % (42.0-52.0); Hemoglobin 13.2 g/dl (14.0-18.0); Mean Corpuscular Hemoglobin 28.7 pg (25.0-34.0); Mean Corpuscular Volume 85.9 fL (80.0-100.0); Platelet Count 189 K/uL (130-400); RDW Standard Deviation 41.0 fL (36.4-46.3); Red Blood Count 4.60 M/uL (4.70-6.10); White Blood Count 7.95 K/ul (4.8-10.8)
[2025-08-11 07:50] LABS: Anion Gap 9.0 (3-11); Blood Urea Nitrogen 21.0 mg/dl (6-23); Calcium 8.8 mg/dl (8.6-10.3); Carbon Dioxide 26.0 mmol/L (21-32); Chloride 106.0 mmol/L (98-107); Creatinine Clr Calc Pharmacy 86.7 ml/min; Glucose 88.0 mg/dl (70-99(Fasting)); Magnesium 2.2 mg/dl (1.7-2.4); Potassium 3.5 mmol/L (3.5-5.1); Sodium 141.0 mmol/L (136-145)
[2025-08-11] MEDS: INSULIN HUMAN NPH SC SCH (09:26)
[2025-08-11] MEDS: POLYETHYLENE (MIRALAX) 17 GM PACK PO ONE (11:37)
[2025-08-11] MEDS: DOCUSATE SODIUM 100 MG CAP PO SCH (11:37)
--- NOTE | 2025-08-11 13:27 | Hospitalist Progress Note ---
Date of Service August 11, 2025 Assessment & Plan (1) CVA (cerebral vascular accident): (2) Urinary retention: (3) Hyperglycemia: (4) DM type 2 (diabetes mellitus, type 2): Plan 60-year-old male inmate from [facility] with past medical history significant for HTN, insulin-dependent DM type II, asthma and HLD who presented to the ED for further evaluation of dizziness, ataxia, lethargy and confusion and was found to have a large subacute R temporoparietal cortex infarct on head CT. He is being managed for the following: Large subacute R temporoparietal cortex infarct: seen on head CT Patient was previously seen and evaluated in our ED earlier on admitting day with complaints of chest pain and vomiting. -Cardiac evaluation at that time was unremarkable including EKG and high- sensitivity troponin level. -He was given a "GI cocktail" per ED provider with improvement in his symptoms. He was discharged back to [facility] in stable condition. Came back the same afternoon for further evaluation of dizziness, ataxia, lethargy and confusion. Found to have large R temporoparietal cortex infarct on head CT. CTA Head and Neck w/ no acute findings. MRI Brain : Large subacute right MCA territory infarct involving the tem poroparietal cortex. No foci of restricted diffusion are seen in the left hemisphere or the cerebellum. There is no hemorrhage or midline shift. A1c 8.9, LDL93. Tox screen neg. ECHO w/ ef of 55-60%, no PFO ro ASD. No slurring of speech, motor strength bilaterally symmetrical. decreased LUE and LLE senses noted. Pt reports headache/dizziness; improving more. c/w neuro checks, tele monitor, fall precaution PT/OT/Speech eval Neuro evaled - zio as OP, c/w DAPT x 3 wks, max dose statin. C/w DAPT, Statin. Neuro f/u on dc. Acute urinary retention Noted by ED. Patient reported that he couldn't pee to nursing staff. Patient was complaining of abdominal pain. -CTAP performed and without any significant acute findings. -Likely 2/2 acute urinary retention. 900cc urine output with straight cath at ED. Was not bladder scanned. Etiology not clear. Possibly related to newly found CVA. UA no s/o uti. Bladder scan Q8H . If retaining again, could consider placement of Roach cath. Uncontrolled Insulin-dependent DM type II Hold home regimen including metformin. SSI protocol ordered. Monitor BSG check ACHS, CC diet once passed dysphagia screen. Will need insulin / medication adjustment at dc. f/u w/ diabetic clinic on dc for ongoing mx. Hyperkalemia: Likely related to related vomiting, volume loss. s/p ivf. now resolved. HTN: c/w home bp meds. HLD: Continue statin, ASA. Asthma: Continue home inhaler. Anemia: H/H appears stable when compared to prior. Iron profile, B12 and folate levels are normal. DVT Prophylaxis: SCDs/TEDs for now Code Status: FULL CODE PCP: RENE Kaba Disposition: med/telemetry, pt/ot. recs is rehab. cm to assist w/ dc plan. Admission and Anticipated Discharge Date Admission Date: August 09, 2025 Subjective Patient was seen and examined at bedside. Patient was lying in bed, on room air, NAD. Pt reports more improvement in his headache/dizziness. He is eating ok, has not moved bowel. Pt appears weak/ill. Physical Exam Physical Exam: General: M, laying down in bed, A&Ox3, correctional officers at bedside. HEENT: Normocephalic, atraumatic. External ear and nose normal, moist mucous membranes. Respiratory: Normal respiratory effort, CTAB. On RA. No accessory muscle use. Cardiovascular: RRR, normal peripheral pulses, no BLE edema. Abdomen/GI: Normal bowel sounds, soft, nontender to palpation in all quadrants. Extremities/Musculoskeletal: No cyanosis or clubbing, extremities motor strength intact, moves all extremities. decreased sensation LUE/LLE. Neurologic: CN's II-XI not formally tested but appear grossly intact bilaterally. Results & Data Results & Data Vital Signs (Past 12 Hours) Vital Signs Temp Pulse Pulse Resp BP Pulse Ox O2 Del Method 08/11/25 11:25 37.0 C 77 16 127/68 95 Room Air 08/11/25 08:04 37.4 C 72 18 159/70 H 93 Room Air 08/11/25 05:15 63 08/11/25 02:47 37.0 C 62 17 132/73 96 Room Air (1) CVA (cerebral vascular accident) CVA mechanism: unspecified Qualified Code(s): I63.9 - Cerebral infarction, unspecified
--- NOTE | 2025-08-11 13:45 | Pharmacy Report ---
Pharmacy Glycemic Short Note 2 - Date of Service August 11, 2025 - Glycemic Short BSG Results (Last 24 hours): 08/10/25 08/10/25 08/11/25 17:05 20:01 07:11 Glucose 88 POC Glucose 122 H 122 H 08/11/25 08/11/25 08:09 12:40 Glucose POC Glucose 98 79 OUTPATIENT ANTIDIABETIC REGIMEN: * NPH 12 units with breakfast, 20 units with dinner * Regular insulin SSI * Metformin 1000mg PO BID * A1c pending ASSESSMENT: 08/11 * Patient received total of 29 units of insulin yesterday, of which 27 units were NPH * Fasting BSG 88 mg/dL - will scale back as PO intake was minimal yesterday and decrease to NPH 10 units once daily * Lunch time BSG trending down 79 mg/dL - will remove CR for now 08/10 * 60 YO M inmate from [facility], [facility] HTN, DM type II, asthma and HLD, admit delta with large subacute R temporoparietal cortex infarct on head CT. * NPO yesterday, started type 2 DM diet yesterday, no basal yesterday. Will begin basal today, slightly reduced dose since patient will receive carb coverage with NovoLog. PLAN FOR INPATIENT GLYCEMIC CONTROL: * Hold outpatient oral diabetes medications * Basal insulin * NPH 10 units once daily * Bolus insulin * NovoLog per scale ACHS or Q6hrs while NPO * Goal Range: Low 110 mg/dL - High 140 mg/dL * Correction Factor: 30 mg/dL/unit * Nutritional / Prandial insulin per carb ratio of 1 unit per -- grams CHO consumed
[2025-08-12 07:30] LABS: Hematocrit (blood only) 40.3 % (42.0-52.0); Hemoglobin 13.6 g/dl (14.0-18.0); Mean Corpuscular Hemoglobin 28.9 pg (25.0-34.0); Mean Corpuscular Volume 85.7 fL (80.0-100.0); Platelet Count 195 K/uL (130-400); RDW Standard Deviation 39.7 fL (36.4-46.3); Red Blood Count 4.70 M/uL (4.70-6.10); White Blood Count 8.45 K/ul (4.8-10.8)
[2025-08-12 07:48] LABS: Anion Gap 12.0 (3-11); Blood Urea Nitrogen 26.0 mg/dl (6-23); Calcium 8.7 mg/dl (8.6-10.3); Carbon Dioxide 22.0 mmol/L (21-32); Chloride 104.0 mmol/L (98-107); Creatinine Clr Calc Pharmacy 80.9 ml/min; Glucose 101.0 mg/dl (70-99(Fasting)); Potassium 4.0 mmol/L (3.5-5.1); Sodium 138.0 mmol/L (136-145)
[2025-08-12] MEDS ORDERED: INSULIN HUMAN NPH SC SCH (09:00)
--- NOTE | 2025-08-12 11:43 | Hospitalist Progress Note ---
Date of Service August 12, 2025 Assessment & Plan (1) CVA (cerebral vascular accident): (2) Urinary retention: (3) Hyperglycemia: (4) DM type 2 (diabetes mellitus, type 2): Plan 60-year-old male inmate from [facility] with past medical history significant for HTN, insulin-dependent DM type II, asthma and HLD who presented to the ED for further evaluation of dizziness, ataxia, lethargy and confusion and was found to have a large subacute R temporoparietal cortex infarct on head CT. He is being managed for the following: Large subacute R temporoparietal cortex infarct: seen on head CT Patient was previously seen and evaluated in our ED earlier on admitting day with complaints of chest pain and vomiting. -Cardiac evaluation at that time was unremarkable including EKG and high- sensitivity troponin level. -He was given a "GI cocktail" per ED provider with improvement in his symptoms. He was discharged back to [facility] in stable condition. Came back the same afternoon for further evaluation of dizziness, ataxia, lethargy and confusion. Found to have large R temporoparietal cortex infarct on head CT. CTA Head and Neck w/ no acute findings. MRI Brain : Large subacute right MCA territory infarct involving the tem poroparietal cortex. No foci of restricted diffusion are seen in the left hemisphere or the cerebellum. There is no hemorrhage or midline shift. A1c 8.9, LDL93. Tox screen neg. ECHO w/ ef of 55-60%, no PFO ro ASD. No slurring of speech, motor strength bilaterally symmetrical. decreased LUE and LLE senses noted. Pt reports headache/dizziness; improving more. c/w neuro checks, tele monitor, fall precaution PT/OT/Speech eval Neuro evaled - zio as OP, c/w DAPT x 3 wks, max dose statin. C/w DAPT, Statin. Neuro f/u on dc. Acute urinary retention Noted by ED. Patient reported that he couldn't pee to nursing staff. Patient was complaining of abdominal pain. -CTAP performed and without any significant acute findings. -Likely 2/2 acute urinary retention. 900cc urine output with straight cath at ED. Was not bladder scanned. Etiology not clear. Possibly related to newly found CVA. UA no s/o uti. Bladder scan Q8H . If retaining again, could consider placement of Roach cath. Uncontrolled Insulin-dependent DM type II Hold home regimen including metformin. SSI protocol ordered. Monitor BSG check ACHS, CC diet once passed dysphagia screen. Will need insulin / medication adjustment at dc. f/u w/ diabetic clinic on dc for ongoing mx. Hyperkalemia: Likely related to related vomiting, volume loss. s/p ivf. now resolved. HTN: c/w home bp meds. HLD: Continue statin, ASA. Asthma: Continue home inhaler. Anemia: H/H appears stable when compared to prior. Iron profile, B12 and folate levels are normal. DVT Prophylaxis: SCDs/TEDs for now Code Status: FULL CODE PCP: RENE Kaba Disposition: med/telemetry, pt/ot. recs is rehab. cm to assist w/ dc plan. Admission and Anticipated Discharge Date Admission Date: August 09, 2025 Subjective Patient was seen and examined at bedside. Patient was lying in bed, on room air, NAD. Pt reports no headache, some dizziness. He is eating ok, has not moved bowel. Pt appears weak/ill. Physical Exam Physical Exam: General: M, laying down in bed, A&Ox3, correctional officers at bedside. HEENT: Normocephalic, atraumatic. External ear and nose normal, moist mucous membranes. Respiratory: Normal respiratory effort, CTAB. On RA. No accessory muscle use. Cardiovascular: RRR, normal peripheral pulses, no BLE edema. Abdomen/GI: Normal bowel sounds, soft, nontender to palpation in all quadrants. Extremities/Musculoskeletal: No cyanosis or clubbing, extremities motor strength intact, moves all extremities. decreased sensation LUE/LLE. Neurologic: CN's II-XI not formally tested but appear grossly intact bilaterally. Results & Data Results & Data Vital Signs (Past 12 Hours) Vital Signs Temp Pulse Pulse Resp BP Pulse Ox O2 Del Method 08/12/25 11:35 36.8 C 71 17 147/78 H 95 Room Air 08/12/25 08:12 36.7 C 66 17 143/76 H 95 Room Air 08/12/25 07:02 66 08/12/25 04:05 37.0 C 68 20 120/79 100 Room Air 08/11/25 23:48 37.1 C 67 20 135/77 97 Room Air (1) CVA (cerebral vascular accident) CVA mechanism: unspecified Qualified Code(s): I63.9 - Cerebral infarction, unspecified
[2025-08-12] MEDS: POLYETHYLENE (MIRALAX) 17 GM PACK PO SCH (12:57)
--- NOTE | 2025-08-12 13:29 | Pharmacy Report ---
- Date of Service August 12, 2025 - Pharmacy CVA/TIA Medication Review Medications to Prevent Stroke handout has been added to the patients discharge packet. Antiplatelet(s) * Aspirin 81 mg PO daily + clopidogrel 75 mg PO daily Cholesterol * High intensity statin: rosuvastatin 40 mg daily DVT Prophylaxis * SCD knee Therapeutic Anticoagulation * No history of Afib/Aflutter noted Type 2 Diabetes * Patient has T2DM, but per Dr. Chang, a diabetes medication with proven CVD benefit will be deferred to their outpatient provider due to familiarity with risks/benefits of such therapies. "Medications to prevent stroke" handout has already been added to the patient's discharge packet, which instructs the patient to follow up with their outpatient provider to evaluate which diabetes medication with proven CVD benefit is best for them
--- NOTE | 2025-08-12 15:13 | Pharmacy Report ---
Pharmacy Glycemic Short Note 2 - Date of Service August 12, 2025 - Glycemic Short BSG Results (Last 24 hours): 08/11/25 08/11/25 08/12/25 16:55 20:59 03:58 Glucose POC Glucose 91 96 103 H 08/12/25 08/12/25 08/12/25 07:04 07:54 12:04 Glucose 101 H POC Glucose 101 H 117 H OUTPATIENT ANTIDIABETIC REGIMEN: * NPH 12 units with breakfast, 20 units with dinner * Regular insulin SSI * Metformin 1000mg PO BID * A1c pending ASSESSMENT: 08/12 * Wei received a total of 10 units of insulin yesterday, all were NPH. BSGs were all below goal range yesterday. * Fasting BSG was 101mg/dL this morning. Will hold NPH for now and continue the current bolus insulin regimen with only the correction factor for coverage. 08/11 * Patient received total of 29 units of insulin yesterday, of which 27 units were NPH * Fasting BSG 88 mg/dL - will scale back as PO intake was minimal yesterday and decrease to NPH 10 units once daily * Lunch time BSG trending down 79 mg/dL - will remove CR for now 08/10 * 60 YO M inmate from [facility], [facility] HTN, DM type II, asthma and HLD, admitted with large subacute R temporoparietal cortex infarct on head CT. * NPO yesterday, started type 2 DM diet yesterday, no basal yesterday. Will begin basal today, slightly reduced dose since patient will receive carb coverage with NovoLog. PLAN FOR INPATIENT GLYCEMIC CONTROL: * Hold outpatient oral diabetes medications * Basal insulin * none * Bolus insulin * NovoLog per scale ACHS or Q6hrs while NPO * Goal Range: Low 110 mg/dL - High 140 mg/dL * Correction Factor: 30 mg/dL/unit * Nutritional / Prandial insulin per carb ratio of 1 unit per -- grams CHO consumed
[2025-08-13] MEDS: INSULIN HUMAN NPH SC SCH (09:07)
--- NOTE | 2025-08-13 14:49 | Hospitalist Progress Note ---
Date of Service August 13, 2025 Assessment & Plan (1) CVA (cerebral vascular accident): (2) Urinary retention: (3) Hyperglycemia: (4) DM type 2 (diabetes mellitus, type 2): Plan 60-year-old male inmate from [facility] with past medical history significant for HTN, insulin-dependent DM type II, asthma and HLD who presented to the ED for further evaluation of dizziness, ataxia, lethargy and confusion and was found to have a large subacute R temporoparietal cortex infarct on head CT. He is being managed for the following: Large subacute R temporoparietal cortex infarct: seen on head CT Patient was previously seen and evaluated in our ED earlier on admitting day with complaints of chest pain and vomiting. -Cardiac evaluation at that time was unremarkable including EKG and high- sensitivity troponin level. -He was given a "GI cocktail" per ED provider with improvement in his symptoms. He was discharged back to [facility] in stable condition. Came back the same afternoon for further evaluation of dizziness, ataxia, lethargy and confusion. Found to have large R temporoparietal cortex infarct on head CT. CTA Head and Neck w/ no acute findings. MRI Brain : Large subacute right MCA territory infarct involving the tem poroparietal cortex. No foci of restricted diffusion are seen in the left hemisphere or the cerebellum. There is no hemorrhage or midline shift. A1c 8.9, LDL93. Tox screen neg. ECHO w/ ef of 55-60%, no PFO ro ASD. No slurring of speech, motor strength bilaterally symmetrical. decreased LUE and LLE senses noted. Pt reports headache/dizziness; improving more. c/w neuro checks, tele monitor, fall precaution PT/OT/Speech eval Neuro evaled - zio as OP, c/w DAPT x 3 wks, max dose statin. C/w DAPT, Statin. Neuro f/u on dc. Acute urinary retention Noted by ED. Patient reported that he couldn't pee to nursing staff. Patient was complaining of abdominal pain. -CTAP performed and without any significant acute findings. -Likely 2/2 acute urinary retention. 900cc urine output with straight cath at ED. Was not bladder scanned. Etiology not clear. Possibly related to newly found CVA. UA no s/o uti. was on portillo cath, will do voiding trial today, communicated w/ rn. Uncontrolled Insulin-dependent DM type II Hold home regimen including metformin. SSI protocol ordered. Monitor BSG check ACHS, CC diet once passed dysphagia screen. Will need insulin / medication adjustment at dc. Defer to PCP for starting GLP 1 agonist or SLGT 2 inhibitor given stroke and diabetes. f/u w/ diabetic clinic on dc for ongoing mx. Hyperkalemia: Likely related to related vomiting, volume loss. s/p ivf. now resolved. HTN: c/w home bp meds. HLD: Continue statin, ASA. Asthma: Continue home inhaler. Anemia: H/H appears stable when compared to prior. Iron profile, B12 and folate levels are normal. DVT Prophylaxis: SCDs/TEDs for now Code Status: FULL CODE PCP: RENE Kaba Disposition: med/telemetry, pt/ot. recs is rehab. cm to assist w/ dc plan. Admission and Anticipated Discharge Date Admission Date: August 09, 2025 Subjective Patient was seen and examined at bedside. Patient was lying in bed, on room air, NAD. Pt reports no headache, some dizziness. He is eating ok, denies abd pain. Physical Exam Physical Exam: General: M, laying down in bed, A&Ox3, correctional officers at bedside. HEENT: Normocephalic, atraumatic. External ear and nose normal, moist mucous membranes. Respiratory: Normal respiratory effort, CTAB. On RA. No accessory muscle use. Cardiovascular: RRR, normal peripheral pulses, no BLE edema. Abdomen/GI: Normal bowel sounds, soft, nontender to palpation in all quadrants. Extremities/Musculoskeletal: No cyanosis or clubbing, extremities motor strength intact, moves all extremities. decreased sensation LUE/LLE. Neurologic: CN's II-XI not formally tested but appear grossly intact bilaterally. Results & Data Results & Data Vital Signs (Past 12 Hours) Vital Signs Temp Pulse Pulse Resp BP BP Pulse Ox 08/13/25 12:27 36.6 C 70 17 138/76 97 08/13/25 08:35 36.9 C 71 17 128/73 95 08/13/25 07:31 63 08/13/25 03:30 37 C 66 16 121/73 90 O2 Del Method 08/13/25 12:27 Room Air 08/13/25 08:35 Room Air 08/13/25 07:31 08/13/25 03:30 Room Air (1) CVA (cerebral vascular accident) CVA mechanism: unspecified Qualified Code(s): I63.9 - Cerebral infarction, unspecified
[2025-08-13] MEDS: MAGNESIUM HYDROXIDE SUSP 30 ML UDC PO PRN (18:10)
--- NOTE | 2025-08-13 19:57 | XRay Report ---
EXAMINATION: X-ray KUB/abdomen 1 view CLINICAL HISTORY: Abdominal pain PRIORS: CT 08/09/2025 TECHNIQUE: Single frontal view abdomen FINDINGS: Overlying bowel gas and stool obscures fine bone detail. No significant formed stool present throughout the colon. No dilated loops of bowel. No air-fluid levels. No acute osseous abnormality. IMPRESSION: No significant stool throughout the colon with nondilated, nonobstructed bowel gas pattern Electronically signed by Rama Doss 08-13-2025 7:57 PM
[2025-08-14 07:00] LABS: Anion Gap 9.0 (3-11); Blood Urea Nitrogen 27.0 mg/dl (6-23); Calcium 8.9 mg/dl (8.6-10.3); Carbon Dioxide 25.0 mmol/L (21-32); Chloride 103.0 mmol/L (98-107); Creatinine Clr Calc Pharmacy 79.3 ml/min; Glucose 180.0 mg/dl (70-99(Fasting)); Magnesium 2.5 mg/dl (1.7-2.4); Potassium 3.9 mmol/L (3.5-5.1); Sodium 137.0 mmol/L (136-145)
--- NOTE | 2025-08-14 14:54 | Pharmacy Report ---
Pharmacy Glycemic Short Note 2 - Date of Service August 14, 2025 - Glycemic Short BSG Results (Last 24 hours): 08/13/25 08/13/25 08/14/25 16:37 20:19 05:47 Glucose 180 H POC Glucose 123 H 154 H 08/14/25 08/14/25 07:55 11:53 Glucose POC Glucose 168 H 116 H OUTPATIENT ANTIDIABETIC REGIMEN: * NPH 12 units with breakfast, 20 units with dinner * Regular insulin SSI * Metformin 1000mg PO BID * A1c pending ASSESSMENT: 08/14 * Wei received a total of 15 units of insulin yesterday(8 units were NPH and 7 units were bolus). BSGs were 500-892-662-154mg/dL. * Fasting BSG was 168mg/dL this morning. NPH insulin was restarted yesterday and a conservative carb ratio was added. Will continue this regimen without change for now. 08/12 * Wei received a total of 10 units of insulin yesterday, all were NPH. BSGs were all below goal range yesterday. * Fasting BSG was 101mg/dL this morning. Will hold NPH for now and continue the current bolus insulin regimen with only the correction factor for coverage. 08/11 * Patient received total of 29 units of insulin yesterday, of which 27 units were NPH * Fasting BSG 88 mg/dL - will scale back as PO intake was minimal yesterday and decrease to NPH 10 units once daily * Lunch time BSG trending down 79 mg/dL - will remove CR for now 08/10 * 60 YO M inmate from [facility], [facility] HTN, DM type II, asthma and HLD, admitted with large subacute R temporoparietal cortex infarct on head CT. * NPO yesterday, started type 2 DM diet yesterday, no basal yesterday. Will beg in basal today, slightly reduced dose since patient will receive carb coverage with NovoLog. PLAN FOR INPATIENT GLYCEMIC CONTROL: * Hold outpatient diabetes medications * Basal insulin * NPH insulin 8 units SQ Q AM * Bolus insulin * NovoLog per scale ACHS or Q6hrs while NPO * Goal Range: Low 110 mg/dL - High 140 mg/dL * Correction Factor: 30 mg/dL/unit * Nutritional / Prandial insulin per carb ratio of 1 unit per 20 grams CHO consumed
--- NOTE | 2025-08-14 14:58 | Hospitalist Progress Note ---
Date of Service August 14, 2025 Assessment & Plan (1) CVA (cerebral vascular accident): (2) Urinary retention: (3) Hyperglycemia: (4) DM type 2 (diabetes mellitus, type 2): Plan 60-year-old male inmate from [facility] with past medical history significant for HTN, insulin-dependent DM type II, asthma and HLD who presented to the ED for further evaluation of dizziness, ataxia, lethargy and confusion Patient was previously seen and evaluated in our ED earlier on admitting day with complaints of chest pain and vomiting. Cardiac evaluation at that time was unremarkable including EKG and high- sensitivity troponin level. He was given a "GI cocktail" per ED provider with improvement in his symptoms. He was discharged back to [facility] in stable condition. Came back the same afternoon for further evaluation of dizziness, ataxia, lethargy and confusion. Found to have large R temporoparietal cortex infarct on head CT. Large subacute R temporoparietal cortex infarct CT Head and MRI Brain : Large subacute right MCA territory infarct involving the temporoparietal cortex. No foci of restricted diffusion are seen in the left hemisphere or the cerebellum. There is no hemorrhage or midline shift. A1c 8.9, LDL93. Tox screen neg. ECHO w/ EF 55-60%, no PFO or ASD. Decreased LUE and LLE senses noted. Reports dizziness is improving Neuro eval noted. neurology recommends outpatient Zio patch, max dose statin. Outpatient neurology follow-up. Continue DAPT, rosuvastatin Acute urinary retention Noted by ED. Patient reported that he couldn't urinate to nursing staff. Patient was complaining of abdominal pain. CTAP performed and without any significant acute findings Required Roach placement. Off Roach now. Voiding normally per RN Uncontrolled Insulin-dependent DM type II Hold home regimen including metformin. HbA1c is 8.9 Defer to PCP for starting GLP 1 agonist or SLGT 2 inhibitor given stroke and diabetes. f/u w/ diabetic clinic on dc for ongoing management Hypertension Continue lisinopril DVT Prophylaxis: SCDs/TEDs for now Code Status: FULL CODE [facility] I spent a total of 45 minutes coordinating, documenting and providing care for this patient excluding time spent in performance of separately billed services Admission and Anticipated Discharge Date Admission Date: August 09, 2025 Subjective Patient seen and examined. Reports some mild dizziness, left-sided weakness. Denies other complaints. Physical Exam Constitutional: + well hydrated; no acute distress Eyes: PERRL, conjunctivae normal, anicteric sclerae ENMT: external ear and nose normal, oropharynx normal Respiratory: normal respiratory effort, lungs clear to auscultation Cardiovascular: Rate/Rhythm: regular rate and regular rhythm Gastrointestinal (Abdomen): normal bowel sounds, soft, nontender, no hepatosplenomegaly Musculoskeletal: No pedal edema Neurologic: PERRL, EOMI, accommodation nl, no face palsy, no dysarthria +Left UE pronator drift, reduced sensati on in Left UE/LE Psychiatric: A+Ox3, euthymic affect Results & Data Results & Data Vital Signs (Past 12 Hours) Vital Signs Temp Pulse Pulse Pulse Resp BP BP 08/14/25 11:00 36.7 C 71 18 142/79 H 08/14/25 07:01 37.1 C 72 18 144/83 H 08/14/25 05:39 60 08/14/25 03:35 37.1 C 67 18 124/61 Pulse Ox O2 Del Method 08/14/25 11:00 97 Room Air 08/14/25 07:01 97 Room Air 08/14/25 05:39 08/14/25 03:35 95 Room Air Laboratory Results Abnormal lab results 08/13/25 08/13/25 08/14/25 Range/Units 16:37 20:19 05:47 BUN 27 H (6-23) mg/dl BUN/Creatinine Ratio 30.7 H (10-20) Glucose 180 H (70-99(Fasting)) mg/dl POC Glucose 123 H 154 H (70-99) mg/dl Magnesium 2.5 H (1.7-2.4) mg/dl 08/14/25 08/14/25 Range/Units 07:55 11:53 BUN (6-23) mg/dl BUN/Creatinine Ratio (10-20) Glucose (70-99(Fasting)) mg/dl POC Glucose 168 H 116 H (70-99) mg/dl Magnesium (1.7-2.4) mg/dl (1) CVA (cerebral vascular accident) CVA mechanism: unspecified Qualified Code(s): I63.9 - Cerebral infarction, unspecified
--- NOTE | 2025-08-15 13:26 | Hospitalist Progress Note ---
Date of Service August 15, 2025 Assessment & Plan (1) CVA (cerebral vascular accident): (2) Urinary retention: (3) Hyperglycemia: (4) DM type 2 (diabetes mellitus, type 2): Plan 60-year-old male inmate from [facility] with past medical history significant for HTN, insulin-dependent DM type II, asthma and HLD who presented to the ED for further evaluation of dizziness, ataxia, lethargy and confusion Patient was previously seen and evaluated in our ED earlier on admitting day with complaints of chest pain and vomiting. Cardiac evaluation at that time was unremarkable including EKG and high- sensitivity troponin level. He was given a "GI cocktail" per ED provider with improvement in his symptoms. He was discharged back to [facility] in stable condition. Came back the same afternoon for further evaluation of dizziness, ataxia, lethargy and confusion. Found to have large R temporoparietal cortex infarct on head CT. Large subacute R temporoparietal cortex infarct CT Head and MRI Brain : Large subacute right MCA territory infarct involving the temporoparietal cortex. No foci of restricted diffusion are seen in the left hemisphere or the cerebellum. There is no hemorrhage or midline shift. A1c 8.9, LDL93. Tox screen neg. ECHO w/ EF 55-60%, no PFO or ASD. Neuro eval noted. Neurology recommends outpatient Zio patch, max dose statin. Outpatient neurology follow-up. Continue DAPT, rosuvastatin Acute urinary retention Noted by ED. Patient reported that he couldn't urinate to nursing staff. Patient was complaining of abdominal pain. CTAP performed and without any significant acute findings Required Roach briefly which has since been removed Voiding normally per RN Uncontrolled Insulin-dependent DM type II Hold home regimen including metformin. HbA1c is 8.9 Defer to PCP for starting GLP 1 agonist or SLGT 2 inhibitor given stroke and diabetes. f/u w/ diabetic clinic on dc for ongoing management Hypertension Continue lisinopril DVT Prophylaxis: SCDs/TEDs for now Code Status: FULL CODE PCP: RENE Kaba Awaiting placement I spent a total of 25 minutes coordinating, documenting and providing care for this patient excluding time spent in performance of separately billed services Admission and Anticipated Discharge Date Admission Date: August 09, 2025 Subjective Patient seen and examined No dizziness today No new complaints Physical Exam Constitutional: + well hydrated; no acute distress Eyes: PERRL, conjunctivae normal, anicteric sclerae ENMT: external ear and nose normal, oropharynx normal Respiratory: normal respiratory effort, lungs clear to auscultation Cardiovascular: Rate/Rhythm: regular rate and regular rhythm Gastrointestinal (Abdomen): normal bowel sounds, soft, nontender, no h epatosplenomegaly Neurologic: PERRL, EOMI, accommodation nl, no face palsy, no dysarthria Reduced power in LUE/LLE Psychiatric: A+Ox3, euthymic affect Results & Data Results & Data Vital Signs (Past 12 Hours) Vital Signs Temp Pulse Pulse Resp BP Pulse Ox O2 Del Method 08/15/25 10:57 37.0 C 75 18 114/69 97 Room Air 08/15/25 07:40 63 08/15/25 07:35 36.8 C 69 18 131/80 99 Room Air 08/15/25 03:34 37 C 74 18 133/73 97 Room Air Laboratory Results Abnormal lab results 08/14/25 08/14/25 08/15/25 Range/Units 17:15 20:17 08:12 POC Glucose 123 H 149 H 146 H (70-99) mg/dl 08/15/25 Range/Units 12:17 POC Glucose 157 H (70-99) mg/dl (1) CVA (cerebral vascular accident) CVA mechanism: unspecified Qualified Code(s): I63.9 - Cerebral infarction, unspecified
[2025-08-15] MEDS: INFLUENZA VACC TS2025-26(6m+)/PF (IIV3) 0.5mL Syr IM ONE (13:37)
[2025-08-16 09:11] VITALS: RESP 16
[2025-08-16] MEDS: INSULIN HUMAN NPH SC SCH (09:45)
[2025-08-16] MEDS ORDERED: STROKE PATIENT DISCHARGE STA (12:33)
--- NOTE | 2025-08-16 12:34 | Discharge Summary ---
Date of Service August 16, 2025 Admission HPI Per Admitting Provider Patient is a 60-year-old male inmate from [facility] with past medical history significant for HTN, insulin-dependent DM type II, asthma and HLD who presented to the ED for further evaluation of dizziness, ataxia, lethargy and confusion. Patient was previously seen and evaluated in our ED earlier today with complaints of chest pain and vomiting. Cardiac evaluation at that time was unremarkable including EKG and high-sensitivity troponin level. Chest x-ray at that time did reveal findings of mild pulmonary vascular congestion and question of hazy opacification of the lung bases however there was remarks of shallow inspiration in the findings which could obscure findings. He was given a "GI cocktail" per ED provider with improvement in his symptoms. He was discharged back to [facility] in stable condition. Patient was brought back to the ED this afternoon with complaints of dizziness, lethargy and confusion. Dizziness reportedly ongoing x 3 days. This was not mentioned during his earlier visit in the ED. Upon arrival back to [facility] earlier today, medical staff noted that he was ataxic, appeared lethargic and confused. Patient alert and oriented to direct questioning in the ED. Able to re call recent symptomatology and situation. Cannot correctly identify location. Believes he is still at [facility]. Only complaint is lower abdominal pain. He did mention to nursing staff that he felt like he couldn't urinate. Straight cath was done in the ED with 900cc of urine output. Admission Exam Per Admitting Provider General: M, laying down in bed, A&Ox2, + chills, correctional officers at bedside. HEENT: Normocephalic, atraumatic. External ear and nose normal, somewhat dry mucous membranes. Respiratory: Normal respiratory effort, CTAB. On RA. No accessory muscle use. Cardiovascular: RRR, normal peripheral pulses, no BLE edema. Abdomen/GI: Normal bowel sounds, soft, nontender to palpation in all quadrants. Extremities/Musculoskeletal: No cyanosis or clubbing, extremities motor strength intact, moves all extremities. Neurologic: No overt focal deficits, CN's II-XI not formally tested but appear grossly intact bilaterally. Principal Diagnosis Stroke Acute urinary retention Diabetes mellitus Discharge Exam Constitutional + well hydrated; no acute distress Eyes PERRL, conjunctivae normal, anicteric sclerae ENMT external ear and nose normal, oropharynx normal Respiratory normal respiratory effort, lungs clear to auscultation Cardiovascular Rate/Rhythm: regular rate and regular rhythm Gastrointestinal (Abdomen) normal bowel sounds, soft, nontender, no hepatosplenomegaly Musculoskeletal No pedal edema Neurologic PERRL, EOMI, accommodation nl, no face palsy, no dysarthria Reduced power in LUE/LLE Psychiatric A+Ox3, euthymic affect Discharge Data Allergies Allergy/AdvReac Type Severity Reaction Status Date / Time Penicillins Allergy Severe ON SCI Verified 08/09/25 16:21 [facility] MED LIST Consultations 08/09/25 15:45 ED Decision to Admit Stat 08/09/25 17:34 Consult Neurology Routine Ordered Studies 08/09/25 14:15 CT Abd and Pelvis [CT abd pelvis IV con only] Stat CT head/brain wo con Stat 08/09/25 17:34 CT angio head w con Routine CT angio neck with con Routine 08/10/25 17:34 MR brain wo con Routine Hospital Course (1) CVA (cerebral vascular accident): (2) Urinary retention: (3) Hyperglycemia: (4) DM type 2 (diabetes mellitus, type 2): Plan 60-year-old male inmate from [facility] with past medical history significant for HTN, insulin-dependent DM type II, asthma and HLD who presented to the ED for further evaluation of dizziness, ataxia, lethargy and confusion Patient was previously seen and evaluated in our ED earlier on admitting day with complaints of chest pain and vomiting. Cardiac evaluation at that time was unremarkable including EKG and high- sensitivity troponin level. He was given a "GI cocktail" per ED provider with improvement in his symptoms. He was discharged back to [facility] in stable condition. Came back the same afternoon for further evaluation of dizziness, ataxia, lethargy and confusion. Found to have large R temporoparietal cortex infarct on head CT. Large subacute R temporoparietal cortex infarct CT Head and MRI Brain : Large subacute right MCA territory infarct involving the temporoparietal cortex. No foci of restricted diffusion are seen in the left hemisphere or the cerebellum. There is no hemorrhage or midline shift. A1c 8.9, LDL93. Tox screen neg. ECHO w/ EF 55-60%, no PFO or ASD. Neuro evaluated and recommends outpatient Zio patch.PCP to arrange that Outpatient neurology follow-up. Continue Dual antiplatelet (plavix for another 14 days to complete a today of 21 days). Toradol/diclofenac discontinued Continue rosuvastatin Acute urinary retention Noted by ED. Patient reported that he couldn't urinate to nursing staff. Patient was complaining of abdominal pain. CTAP performed and without any significant acute findings Required Roach briefly which has since been removed Has been voiding normally Poorly controlled Insulin-dependent DM type II HbA1c is 8.9 Currently on insulin and metformin Defer to PCP to continue adjustment of diabetic regimen. May consider GLP1 agoinst Hypertension Continue lisinopril I called correctional facility and spoke with Dr Nick. He is ok with patient's discharge to [facility] Total Time Total Time Spent Total Time Spent (In Minutes): 45 Total Time Includes: Examination of the Patient, Discharge Planning, Medication Reconciliation, Communication With Other Providers and Other Discharge Plan Discharge Items Patient Disposition: Transfer Inpatient Rehab Fac Reason For Visit: SUBACUTE CVA ON HEAD CT Discharge Diagnosis: Stroke Acute urinary retention Diabetes mellitus Condition on Discharge: Fair Activity: As commented below Activity Comment: As recommended by PT/OT Non-emergency contact: Primary Care Provider and Neurologist Call non-emergency contact if: you have any medication questions Follow-up/Referrals: Sesar LÓPEZ [Primary Care Provider] - Diet: Carb Consistent or DM2 and Heart Healthy Addtl Attending Provider Instructions: Mr Pace You were hospitalized and managed for the above listed diagnoses. You are to be on Clopidogrel (Plavix) for another 2 weeks to complete a total of 3 weeks. Please continue taking aspirin. Meloxicam and toradol were stopped for now due to risk of bleeding. Please continue other meds as prescribed Your Primary Doctor can monitor your diabetes control and make adjustments to your regimen as needed. You are being discharged to [facility] for rehab Pending Studies at Discharge: No Stand-Alone Forms: My [facility], Medications to Prevent Stroke Skilled Items Patient informed of condition?: Yes DNR: No Discharge Level of Care: Acute rehab Communicable Disease: No Discharge Prognosis: Stable Lines: None Urinary Catheter: No Medications and DC Order Prescriptions: New polyethylene glycol 3350 [Miralax] 17 gram Powder In Packet 17 g PO DAILY PRN (Reason: constipation) Qty: 14 0RF clopidogrel 75 mg Tablet 75 mg PO QAM 14 Days Qty: 14 0RF Continued metformin 1,000 mg Tablet 1,000 mg PO BID rosuvastatin 40 mg Tablet 40 mg PO HS aspirin 81 mg Capsule 81 mg PO QAM albuterol sulfate 90 mcg/actuation Hfa Aerosol Inhaler 2 inh INHALATION QID PRN (Reason: Shortness Of Breath) Alvesco 160 mcg/actuation Hfa Aerosol Inhaler 1 puff INHALATION BID lisinopril 20 mg Tablet 20 mg PO DAILY Novolin R Regular U100 Insulin 100 unit/mL Solution 1 sliding scale dose SUBCUT USEASDIRECTD Rx Instructions: BSG 201-250=2 UNITS, 251-300=4 UNITS, 301-350= 6 UNITS, 351-400=8 UNITS, 401- 450= 10 UNITS, 451-500= 12 UNITS, >500=CALL MD insulin NPH isoph U-100 human 100 unit/mL (3 mL) Insulin Pen 12 unit SUBCUT QAM insulin NPH isoph U-100 human 100 unit/mL (3 mL) Insulin Pen 20 unit SUBCUT DAILY@1630 omega-3 acid ethyl esters 1 gram Capsule 2 cap PO BID lidocaine 5 % Ointment 1 applic TOPICAL TID Discontinued diclofenac sodium 100 mg Tablet Extended Release 24 Hr 100 mg PO BID ketorolac 30 mg/mL Solution 30 mg IM DAILY Discharge Orders: Discharge Order (Routine); Ordered 08/16/25 Ordered By: Briana Molina/Other Patient Handouts: High Blood Sugar (Hyperglycemia), Managing Type 2 Diabetes, Risk Factors for Stroke, Stroke Self Care After Admission Data Admit Date/Time: 08/09/25 16:07 Attending Provider: Briana Serrato I. Admit Provider: Srinivas Oconnor Primary Care Provider: Sesar LÓPEZ Other Providers: Srinivas Oconnor; Vickie Schroeder; [facility]; Tara Chang Other Interventions: Discharge Summary Assessment (RN) Last Done: 08/16/25 14:58
[2025-08-16 12:40] VITALS: TEMP 97.7; O2SAT 95
[2025-08-16 15:09] VITALS: BP 133/77; PULSE 67
--- NOTE | 2025-08-16 15:25 | Pharmacy Report ---
Pharmacy Glycemic Short Note 2 - Date of Service August 16, 2025 - Glycemic Short BSG Results (Last 24 hours): 08/15/25 08/15/25 08/16/25 17:06 19:49 08:23 POC Glucose 181 H 147 H 167 H 08/16/25 12:14 POC Glucose 140 H OUTPATIENT ANTIDIABETIC REGIMEN: * NPH 12 units with breakfast, 20 units with dinner * Regular insulin SSI * Metformin 1000mg PO BID * A1c pending ASSESSMENT: 08/16 * Wei received a total of 19 units of insulin yesterday (8 units were NPH and 11 units were bolus). All BSGs were above goal yesterday. * Fasting BSG was 167mg/dL this morning. AM NPH was increased by ~20% and an NPH scale (0 or 5 units depending on BSG was added for dinner). * Bolus insulin regimen will be continued without change. 08/14 * Wei received a total of 15 units of insulin yesterday(8 units were NPH and 7 units were bolus). BSGs were [phone]/dL. * Fasting BSG was 168mg/dL this morning. NPH insulin was restarted yesterday and a conservative carb ratio was added. Will continue this regimen without change for now. 08/12 * Wei received a total of 10 units of insulin yesterday, all were NPH. BSGs were all below goal range yesterday. * Fasting BSG was 101mg/dL this morning. Will hold NPH for now and continue the current bolus insulin regimen with only the correction factor for coverage. 08/11 * Patient received total of 29 units of insulin yesterday, of which 27 units were NPH * Fasting BSG 88 mg/dL - will scale back as PO intake was minimal yesterday and decrease to NPH 10 units once daily * Lunch time BSG trending down 79 mg/dL - will remove CR for now 08/10 * 60 YO M inmate from [facility] HTN, DM type II, asthma and HLD, admitted with large subacute R temporoparietal cortex infarct on head CT. * NPO yesterday, started type 2 DM diet yesterday, no basal yesterday. Will begin basal today, slightly reduced dose since patient will receive carb coverage with NovoLog. PLAN FOR INPATIENT GLYCEMIC CONTROL: * Hold outpatient diabetes medications * Basal insulin * NPH insulin 10 units SQ Q AM and NPH scale (0 or 5 units depending on BSG) was added with dinner * Bolus insulin * NovoLog per scale ACHS or Q6hrs while NPO * Goal Range: Low 110 mg/dL - High 140 mg/dL * Correction Factor: 30 mg/dL/unit * Nutritional / Prandial insulin per carb ratio of 1 unit per 20 grams CHO consumed
[2025-08-16] MEDS ORDERED: INSULIN HUMAN NPH SC SCH (16:30)
== END 2025-08-16 17:25 | DRG 66 ==
LOC: ED 13:59 → SUATTDRO 16:07 → 2W 16:07